=== PATIENT | male | born 1955 | race African-American/Black ===

== ENCOUNTER 2018-05-10 09:03 | Inpatient (IN) | payer BC ==
[2018-05-10] VITALS (17 sets, daily range): BP systolic 110–158; BP diastolic 56–79
[~2018-05-10] VITALS: Ht 188 cm; Wt 95.3 kg
[2018-05-10 09:49] LABS: BASO # 0.1 x10^3/uL (0.0-0.2); BASO % 1 % (0-3); EOS % 0 % (0-3); LYMPH # 1.2 x10^3/uL (1.0-4.8); LYMPH % 13 % (24-48); MEAN CORPUSCULAR HEMOGLOBIN 31 pg (25-35); MEAN CORPUSCULAR HGB CONC 36 g/dL (31-37); MEAN CORPUSCULAR VOLUME 87 fL (79-100); MONO # 1.6 x10^3/uL (0.0-1.1); MONO % 17 % (0-9); NEUT # 6.9 x10^3uL (1.8-7.7); NEUT % 70 % (31-73); PLATELET COUNT 372 x10^3/uL (140-400); RED BLOOD COUNT 1.89 x10^6/uL (4.30-5.70); RED CELL DISTRIBUTION WIDTH 14.3 % (11.5-14.5); WHITE BLOOD COUNT 9.8 x10^3/uL (4.0-11.0)
[2018-05-10 09:52] LABS: HEMOGLOBIN 5.8 g/dL (13.0-17.5)
[2018-05-10 09:53] LABS: HEMATOCRIT 16.4 % (39.0-53.0)
[2018-05-10 09:58] LABS: PROTHROMBIN TIME PATIENT 14.9 SEC (11.7-14.0)
[2018-05-10 09:59] LABS: CALCIUM 8.3 mg/dL (8.5-10.1); CREATININE 1.2 mg/dL (0.7-1.3); GFR 74.2; POTASSIUM 3.9 mmol/L (3.5-5.1)
--- NOTE | 2018-05-10 10:02 | PHYS DOC ---
Past Medical History Past Medical History: Hypertension Past Surgical History: Hip Replacement, Other Additional Past Surgical Histo: back surgery Alcohol Use: Occasionally Drug Use: None Adult General Chief Complaint Chief Complaint: ABNORMAL LABS [facility] HPI Patient is a 62 year old male who presents with anemia. Patient is status post left hip replacement which was completed in March. Since the surgery, the patient has had repeated episodes of anemia. He has required blood transfusions. Today, he was referred to come to the emergency department for documented low blood count. He had labs collected yesterday and his hemoglobin was reportedly 6. Patient has no complaints. No pain. No palpitations, lightheadedness. No fever. He does complain however of some mild soft tissue swelling about the incision on the left lateral thigh. Denies melena or hematochezia. Review of Systems Review of Systems Constitutional: Denies fever or chills Eyes: Denies change in visual acuity, redness HENT: Denies nasal congestion or sore throat Respiratory: Denies cough or shortness of breath Cardiovascular: No additional information not addressed in HPI GI: Denies abdominal pain, nausea : Denies dysuria or hematuria Musculoskeletal: Denies back pain Integument: Denies rash or skin lesions Neurologic: Denies headache Endocrine: Denies polyuria All other systems were reviewed and found to be within normal limits, except as documented in this note. Allergies Allergies Allergies Coded Allergies Type Severity Reaction Last Updated Verified No Known Drug Allergies 05/10/18 No Physical Exam Physical Exam Constitutional: Well developed, well nourished, no acute distress HENT: Normocephalic, atraumatic, bilateral external ears normal, oropharynx moist, no oral exudates Eyes: PERRLA, EOMI, conjunctiva pale Neck: Normal range of motion, no tenderness Cardiovascular:Heart rate regular rhythm, no murmur Lungs & Thorax: Bilateral breath sounds clear to auscultation Abdomen: Bowel sounds normal, soft Skin: Warm, dry, no erythema, Extremities: Well-healing incision over the lateral left thigh. There is some soft tissue firmness about the incision but no overt fluctuant areas. No erythema. No dehiscence or drainage. Neurologic: Alert and oriented X 3, normal motor function, normal sensory function Psychologic: Affect normal, judgement normal, mood normal Current Patient Data Vital Signs Vital Signs Date Time Temp Pulse Resp B/P (MAP) Pulse Ox O2 Delivery O2 Flow Rate FiO2 9/1/18 09:18 99.2 93 12 120/62 (81) 96 Room Air 99.2 Lab Values Laboratory Tests Test 05/10/18 09:36 White Blood Count 9.8 x10^3/uL (4.0-11.0) Red Blood Count 1.89 x10^6/uL (4.30-5.70) L Hemoglobin 5.8 g/dL (13.0-17.5) *L Hematocrit 16.4 % (39.0-53.0) *L Mean Corpuscular Volume 87 fL (79-100) Mean Corpuscular Hemoglobin 31 pg (25-35) Mean Corpuscular Hemoglobin Concent 36 g/dL (31-37) Red Cell Distribution Width 14.3 % (11.5-14.5) Platelet Count 372 x10^3/uL (140-400) Neutrophils (%) (Auto) 70 % (31-73) Lymphocytes (%) (Auto) 13 % (24-48) L Monocytes (%) (Auto) 17 % (0-9) H Eosinophils (%) (Auto) 0 % (0-3) Basophils (%) (Auto) 1 % (0-3) Neutrophils # (Auto) 6.9 x10^3uL (1.8-7.7) Lymphocytes # (Auto) 1.2 x10^3/uL (1.0-4.8) Monocytes # (Auto) 1.6 x10^3/uL (0.0-1.1) H Eosinophils # (Auto) 0.0 x10^3/uL (0.0-0.7) Basophils # (Auto) 0.1 x10^3/uL (0.0-0.2) Prothrombin Time 14.9 SEC (11.7-14.0) H Prothrombin Time INR 1.2 (0.8-1.1) H PTT 34 SEC (24-38) Sodium Level 136 mmol/L (136-145) Potassium Level 3.9 mmol/L (3.5-5.1) Chloride Level 102 mmol/L (98-107) Carbon Dioxide Level 25 mmol/L (21-32) Anion Gap 9 (6-14) Blood Urea Nitrogen 10 mg/dL (8-26) Creatinine 1.2 mg/dL (0.7-1.3) Estimated GFR (Cockcroft-Gault) 74.2 Glucose Level 112 mg/dL (70-99) H Calcium Level 8.3 mg/dL (8.5-10.1) L Total Bilirubin 1.0 mg/dL (0.2-1.0) Direct Bilirubin 0.3 mg/dL (0.0-0.2) H Aspartate Amino Transferase (AST) 22 U/L (15-37) Alanine Aminotransferase (ALT) 27 U/L (16-63) Alkaline Phosphatase 324 U/L (46-116) H Total Protein 6.9 g/dL (6.4-8.2) Albumin 2.9 g/dL (3.4-5.0) L Laboratory Tests 05/10/18 09:36 Laboratory Tests 05/10/18 09:36 EKG EKG [] Radiology/Procedures Radiology/Procedures [] Course & Med Decision Making Course & Med Decision Making Pertinent Labs and Imaging studies reviewed. (See chart for details) Patient was seen and evaluated in the ER for anemia. He was originally referred to the hospital for outpatient blood transfusion which is not an option on the weekend. Subsequently, he will be admitted to the hospital. His hemoglobin is documented above and is low. Patient is relatively asymptomatic. He was noted to have positive guaiac test on his stool, which she had previously not been aware of. GI consultation is placed. Patient is agreeable to the plan of care. Orders are placed for 2 units of packed red blood cells to be transfused. Discussed with Dr. Sibley who will primarily admit the patient. Dragon Disclaimer Dragon Disclaimer This electronic medical record was generated, in whole or in part, using a voice recognition dictation system. Departure Departure Referrals: ERASMO RAMIREZ MD (PCP) MARISOL SY DO May 10, 2018 10:02
[2018-05-10 10:05] LABS: ALBUMIN 2.9 g/dL (3.4-5.0); DIRECT BILIRUBIN 0.3 mg/dL (0.0-0.2); TOTAL PROTEIN 6.9 g/dL (6.4-8.2)
[2018-05-10 10:43] LABS: BILIRUBIN,URINE NEGATIVE (NEG); CLARITY,URINE CLEAR; COLOR,URINE YELLOW; NITRITE,URINE POSITIVE (NEG); PH,URINE 6.5; PROTEIN,URINE NEGATIVE (NEG-TRACE)
[2018-05-10] MEDS ORDERED: ACETAMINOPHEN 500 MG TABLET PO ONE (10:45)
[2018-05-10 11:00] LABS: BACTERIA,URINE MANY /HPF (0-FEW); RBC,URINE OCC /HPF (0-2); SQUAMOUS EPITHELIAL CELL,UR FEW /LPF; WBC,URINE 20-40 /HPF (0-4)
[2018-05-10 11:03] LABS: FECAL OB PT POSITIVE (NEG)
[2018-05-10] MEDS ORDERED: ACETAMINOPHEN 325 MG TABLET. PO PRN (11:15)
[2018-05-10] MEDS ORDERED: ONDANSETRON PF 4 MG/2 ML VIAL. IV PRN ×2 (11:15→12:15)
--- NOTE | 2018-05-10 11:48 | RAD ---
CT STUDY OF THE LEFT HIP AND LEFT FEMUR WITHOUT CONTRAST Clinical indications: Left leg and left hip pain status post left hip replacement in March 2018. Patient has swelling in the thigh. Anemia. TECHNIQUE: Noncontrast helical CT scanning of the left hip and left femur down to the level of the distal femoral metaphysis was performed. Multiplanar 2-D reconstructions were generated. PQRS compliance Statement One or more of the following individualized dose reduction techniques were utilized for this study: 1. Automated exposure control 2. Adjustment of the mA and/or kV according to patient size 3. Use of iterative reconstruction technique COMPARISON: None available. FINDINGS: A left hip arthroplasty is seen which is well aligned. There is metallic streaking artifact related to the arthroplasty. There is a nondisplaced comminuted spiral fracture of the proximal shaft of the left femur. A long femoral stem prosthesis is seen extending through the proximal left femoral shaft and intertrochanteric area down to the distal shaft level below the level of the fracture. Bone infarct is seen within the distal shaft of the left femur distal to the femoral stem prosthesis. 4 cerclage wires are evident. Fracture fragments are seen anteriorly and medially. Some mild callus formation is seen around the upper portion of the fracture. Heterotopic soft tissue ossification is seen. There is a radiolucent lesion of the roof of the acetabulum anteriorly with associated soft tissue component. This lesion measures 4.1 cm transversely and 2.4 cm in AP dimension and 1.9 cm in vertical dimension including the soft tissue component.. There is myositis ossificans laterally within the proximal left thigh which measures 10.8 cm in vertical dimension. There is a fluid collection measuring 8 cm in length just lateral to the greater trochanter. This is consistent with greater trochanteric bursitis or postoperative hematoma or seroma. There is lateral subcutaneous soft tissue edema which may be related to the recent surgery. On images 68-90 and series 2 and images 38-46 and series 4, there is an ill-defined hypodensity present within the biceps femoris muscle. This could be related to the streaking artifact from the prosthesis or could be due to an intramuscular hematoma related to muscle injury. This is seen at the mid thigh level. IMPRESSION: Left hip prosthesis with a long femoral stem. The long femoral stem and cerclage wires fixates and reduces a comminuted left femoral shaft fracture. Mild healing callus formation is evident. The fracture is not yet healed. Fluid collection lateral to the greater trochanter consistent greater trochanteric bursitis or could represent postoperative hematoma or seroma. Infection of this fluid collection or abscess cannot be determined by CT. Ill-defined hypodense area within the biceps Sue muscle the mid thigh area. This could be related to streaking artifact from the metal prosthesis or could represent an intramuscular hematoma secondary to muscle injury. Clinical correlation with this area is recommended. Myositis ossificans laterally. Radiolucent lesion of the roof of the acetabulum. Differential considerations include metastatic disease or myeloma or infection or loosening. Electronically signed by: Fercho Rachel MD (05/10/2018 11:45 AM) [facility]
--- NOTE | 2018-05-10 12:04 | PDOC1 ---
History and Physical Date of Admission Date of Admission DATE: 05/10/18 TIME: 12:04 Identification/Chief Complaint Chief Complaint Black stools Source Source: Caregiver, Chart review, Patient History of Present Illness History of Present Illness Pleasant 62-year-old -[place] male, recent hip surgery left at some 2 months ago. Loots of blood loss yoav/intra op, required multiple blood transfusions at , comes in because of black stools with a hemoglobin of 5.8 on admission. GI consulted, Hemoccult positive. To transfuse 3 packed RBCs. Possible need scope in house during this admission. So far blood pressure and heart rate good. No abdominal pain. CAT scan of the left pelvis hip was done, he has been complaining of some increased pain there. He is healing well on the outside, but there is a mention of postop hematoma or seroma seen on CAT scan. Hence I'm consulting orthopedics. GI Was consulted. Follows with Dr. Lacey Chisholm for the anemia. We'll consult the same group otherwise. Otherwise just takes only Tylenol at home, not on any NSAIDs. No cardio- pulmonary problems. Nonsmoker nonalcoholic drinker No known drug allergies, AMbulates with a cane at home since the hip fx. Past Medical History Cardiovascular: No pertinent hx Pulmonary: Bronchitis GI: No pertinent hx Heme/Onc: No pertinent hx Hepatobiliary: No pertinent hx Musculoskeletal: Osteoarthritis Past Surgical History Past Surgical History: Total hip replacement Family History Family History: No Significant Social History Smoke: No ALCOHOL: none Drugs: None Current Problem List Problem List Problems Medical Problems: (1) Anemia Status: Acute (2) GI bleed Status: Acute (3) Urinary tract infection Status: Acute Current Medications Current Medications Current Medications Acetaminophen (Tylenol) 1,000 mg 1X ONCE PO Last administered on 05/10/18at 10: 38; Start 05/10/18 at 10:45; Stop 05/10/18 at 10:46; Status DC Ondansetron HCl (Zofran) 4 mg PRN Q8HRS PRN IV NAUSEA/VOMITING; Start 05/10/18 at 11:15; Stop 05/11/18 at 11:14 Acetaminophen (Tylenol) 650 mg PRN Q4HRS PRN PO FEVER; Start 05/10/18 at 11:15; Stop 05/11/18 at 11:14 Levofloxacin (Levaquin) 500 mg DAILY06 PO ; Start 05/10/18 at 12:00 Lactobacillus Rhamnosus (Culturelle) 1 cap BID PO ; Start 05/10/18 at 21:00 Allergies Allergies: Coded Allergies: No Known Drug Allergies (Unverified , 05/10/18) ROS Review of System Left hip pain, black stools, the rest of ROS 14 point negative Physical Exam General: Alert, Oriented X3, Cooperative, No acute distress HEENT: Atraumatic, PERRLA, EOMI, Other (pale palpebral conjunctivae) Lungs: Clear to auscultation Heart: S1S2, RRR, no thrills, no rubs, no gallops, no murmurs Cardiovascular: S1, S2 Abdomen: Normal bowel sounds, Soft, No tenderness, No hepatosplenomegaly, No masses Male Genitals Exam: normal genitalia, normal prostate PELVIC: Other (left hip, scar, healing well) Extremities: No clubbing, No cyanosis, No edema Skin: No rashes, No breakdown, No significant lesion Neuro: Normal gait, Normal speech, Strength at 5/5 X4 ext, Normal tone, Sensation intact, Cranial nerves 3-12 NL, Reflexes 2+ Psych/Mental Status: Mental status NL, Mood NL Vitals Vitals Vital Signs Date Time Temp Pulse Resp B/P (MAP) Pulse Ox O2 Delivery O2 Flow Rate FiO2 05/10/18 11:26 98.8 88 20 116/64 98.8 05/10/18 11:18 94 Room Air Labs Labs Laboratory Tests Test 05/10/18 09:36 05/10/18 10:27 05/10/18 10:41 White Blood Count 9.8 x10^3/uL (4.0-11.0) Red Blood Count 1.89 x10^6/uL (4.30-5.70) Hemoglobin 5.8 g/dL (13.0-17.5) Hematocrit 16.4 % (39.0-53.0) Mean Corpuscular Volume 87 fL (79-100) Mean Corpuscular Hemoglobin 31 pg (25-35) Mean Corpuscular Hemoglobin Concent 36 g/dL (31-37) Red Cell Distribution Width 14.3 % (11.5-14.5) Platelet Count 372 x10^3/uL (140-400) Neutrophils (%) (Auto) 70 % (31-73) Lymphocytes (%) (Auto) 13 % (24-48) Monocytes (%) (Auto) 17 % (0-9) Eosinophils (%) (Auto) 0 % (0-3) Basophils (%) (Auto) 1 % (0-3) Neutrophils # (Auto) 6.9 x10^3uL (1.8-7.7) Lymphocytes # (Auto) 1.2 x10^3/uL (1.0-4.8) Monocytes # (Auto) 1.6 x10^3/uL (0.0-1.1) Eosinophils # (Auto) 0.0 x10^3/uL (0.0-0.7) Basophils # (Auto) 0.1 x10^3/uL (0.0-0.2) Prothrombin Time 14.9 SEC (11.7-14.0) Prothromb Time International Ratio 1.2 (0.8-1.1) Activated Partial Thromboplast Time 34 SEC (24-38) Sodium Level 136 mmol/L (136-145) Potassium Level 3.9 mmol/L (3.5-5.1) Chloride Level 102 mmol/L (98-107) Carbon Dioxide Level 25 mmol/L (21-32) Anion Gap 9 (6-14) Blood Urea Nitrogen 10 mg/dL (8-26) Creatinine 1.2 mg/dL (0.7-1.3) Estimated GFR (Cockcroft-Gault) 74.2 Glucose Level 112 mg/dL (70-99) Calcium Level 8.3 mg/dL (8.5-10.1) Total Bilirubin 1.0 mg/dL (0.2-1.0) Direct Bilirubin 0.3 mg/dL (0.0-0.2) Aspartate Amino Transf (AST/SGOT) 22 U/L (15-37) Alanine Aminotransferase (ALT/SGPT) 27 U/L (16-63) Alkaline Phosphatase 324 U/L (46-116) Total Protein 6.9 g/dL (6.4-8.2) Albumin 2.9 g/dL (3.4-5.0) Urine Collection Type Void Urine Color Yellow Urine Clarity Clear Urine pH 6.5 Urine Specific [place] 1.010 Urine Protein Negative mg/dL (NEG-TRACE) Urine Glucose (UA) Negative mg/dL (NEG) Urine Ketones (Stick) Negative mg/dL (NEG) Urine Blood Negative (NEG) Urine Nitrite Positive (NEG) Urine Bilirubin Negative (NEG) Urine Urobilinogen Dipstick 4.0 mg/dL (0.2 mg/dL) Urine Leukocyte Esterase Moderate (NEG) Urine RBC Occ /HPF (0-2) Urine WBC 20-40 /HPF (0-4) Urine Squamous Epithelial Cells Few /LPF Urine Bacteria Many /HPF (0-FEW) Stool Occult Blood Positive (NEG) Laboratory Tests Test 05/10/18 09:36 05/10/18 10:27 05/10/18 10:41 White Blood Count 9.8 x10^3/uL (4.0-11.0) Red Blood Count 1.89 x10^6/uL (4.30-5.70) Hemoglobin 5.8 g/dL (13.0-17.5) Hematocrit 16.4 % (39.0-53.0) Mean Corpuscular Volume 87 fL (79-100) Mean Corpuscular Hemoglobin 31 pg (25-35) Mean Corpuscular Hemoglobin Concent 36 g/dL (31-37) Red Cell Distribution Width 14.3 % (11.5-14.5) Platelet Count 372 x10^3/uL (140-400) Neutrophils (%) (Auto) 70 % (31-73) Lymphocytes (%) (Auto) 13 % (24-48) Monocytes (%) (Auto) 17 % (0-9) Eosinophils (%) (Auto) 0 % (0-3) Basophils (%) (Auto) 1 % (0-3) Neutrophils # (Auto) 6.9 x10^3uL (1.8-7.7) Lymphocytes # (Auto) 1.2 x10^3/uL (1.0-4.8) Monocytes # (Auto) 1.6 x10^3/uL (0.0-1.1) Eosinophils # (Auto) 0.0 x10^3/uL (0.0-0.7) Basophils # (Auto) 0.1 x10^3/uL (0.0-0.2) Prothrombin Time 14.9 SEC (11.7-14.0) Prothromb Time International Ratio 1.2 (0.8-1.1) Activated Partial Thromboplast Time 34 SEC (24-38) Sodium Level 136 mmol/L (136-145) Potassium Level 3.9 mmol/L (3.5-5.1) Chloride Level 102 mmol/L (98-107) Carbon Dioxide Level 25 mmol/L (21-32) Anion Gap 9 (6-14) Blood Urea Nitrogen 10 mg/dL (8-26) Creatinine 1.2 mg/dL (0.7-1.3) Estimated GFR (Cockcroft-Gault) 74.2 Glucose Level 112 mg/dL (70-99) Calcium Level 8.3 mg/dL (8.5-10.1) Total Bilirubin 1.0 mg/dL (0.2-1.0) Direct Bilirubin 0.3 mg/dL (0.0-0.2) Aspartate Amino Transf (AST/SGOT) 22 U/L (15-37) Alanine Aminotransferase (ALT/SGPT) 27 U/L (16-63) Alkaline Phosphatase 324 U/L (46-116) Total Protein 6.9 g/dL (6.4-8.2) Albumin 2.9 g/dL (3.4-5.0) Urine Collection Type Void Urine Color Yellow Urine Clarity Clear Urine pH 6.5 Urine Specific [place] 1.010 Urine Protein Negative mg/dL (NEG-TRACE) Urine Glucose (UA) Negative mg/dL (NEG) Urine Ketones (Stick) Negative mg/dL (NEG) Urine Blood Negative (NEG) Urine Nitrite Positive (NEG) Urine Bilirubin Negative (NEG) Urine Urobilinogen Dipstick 4.0 mg/dL (0.2 mg/dL) Urine Leukocyte Esterase Moderate (NEG) Urine RBC Occ /HPF (0-2) Urine WBC 20-40 /HPF (0-4) Urine Squamous Epithelial Cells Few /LPF Urine Bacteria Many /HPF (0-FEW) Stool Occult Blood Positive (NEG) VTE Prophylaxis Ordered VTE Prophylaxis Devices: Contraindicated VTE Pharmacological Prophylaxi: Contraindicated Assessment/Plan Assessment/Plan Acute precipitous drop in hemoglobin Hemoccult-positive Melena Recent hip surgery 2 months ago Postop seroma or hematoma left hip Abnormal CT leg, rule out metastatic process PLAN: Admit CVC Transfuse 3 pRBC Hemoglobin tomorrow GI consulted PPI ortho consult for the above abnormal CT leg Heme onc consulted for the abnormal CT leg with significant anemia, rule out metastatic process Tylenol only is his home medication PT OT Discussed with the whole family and RN at bedside YULI JAIME MD May 10, 2018 12:04
[2018-05-10] MEDS ORDERED: diphenhydrAMINE HCL 25 MG CAPSULE PO PRN (12:15)
[2018-05-10] MEDS ORDERED: levOFLOXacin PER PHARMACY. MC PRN (12:15)
[2018-05-10] MEDS ORDERED: MORPHINE SULFATE 2 MG/ML VIAL. IV PRN (12:15)
[2018-05-10] MEDS ORDERED: HYDROcodone/APAP 5/325MG 1 TAB TABLET PO PRN (12:15)
--- NOTE | 2018-05-10 12:19 | PDOC2 ---
CONSULT Date of Consult Date of Consult DATE: 05/10/18 TIME: 12:16 Reason for Consult Reason for Consult: Anemia s/p hip replacement Current Problem List Problem List Problems Medical Problems: (1) Anemia Status: Acute (2) GI bleed Status: Acute (3) Urinary tract infection Status: Acute Current Medications Current Medications Current Medications Acetaminophen (Tylenol) 1,000 mg 1X ONCE PO Last administered on 05/10/18at 10: 38; Start 05/10/18 at 10:45; Stop 05/10/18 at 10:46; Status DC Ondansetron HCl (Zofran) 4 mg PRN Q8HRS PRN IV NAUSEA/VOMITING; Start 05/10/18 at 11:15; Stop 05/10/18 at 12:04; Status DC Acetaminophen (Tylenol) 650 mg PRN Q4HRS PRN PO FEVER; Start 05/10/18 at 11:15; Stop 05/11/18 at 11:14 Levofloxacin (Levaquin) 500 mg DAILY06 PO ; Start 05/10/18 at 12:00; Stop at 12:04; Status DC Lactobacillus Rhamnosus (Culturelle) 1 cap BID PO ; Start 05/10/18 at 21:00 Ondansetron HCl (Zofran) 4 mg PRN Q6HRS PRN IV NAUSEA/VOMITING; Start 05/10/18 at 12:15; Status UNV Levofloxacin/ Dextrose (Levaquin Per Pharmacy) 1 each PRN DAILY PRN MC SEE COMMENTS; Start 05/10/18 at 12:15; Status UNV Morphine Sulfate (Morphine Sulfate) 2 mg PRN Q2HR PRN IV PAIN; Start 05/10/18 at 12:15; Status UNV Acetaminophen/ Hydrocodone Bitart (Lortab 5/325) 1 tab PRN Q4HRS PRN PO PAIN; Start 05/10/18 at 12:15; Status UNV Diphenhydramine HCl (Benadryl) 25 mg PRN QHS PRN PO INSOMNIA; Start 05/10/18 at 12:15; Status UNV Allergies Allergies: Coded Allergies: No Known Drug Allergies (Unverified , 05/10/18) Vitals VITALS Vital Signs Date Time Temp Pulse Resp B/P (MAP) Pulse Ox O2 Delivery O2 Flow Rate FiO2 05/10/18 11:26 98.8 88 20 116/64 98.8 05/10/18 11:18 94 Room Air Labs Labs Laboratory Tests Test 05/10/18 09:36 05/10/18 10:27 05/10/18 10:41 White Blood Count 9.8 x10^3/uL (4.0-11.0) Red Blood Count 1.89 x10^6/uL (4.30-5.70) Hemoglobin 5.8 g/dL (13.0-17.5) Hematocrit 16.4 % (39.0-53.0) Mean Corpuscular Volume 87 fL (79-100) Mean Corpuscular Hemoglobin 31 pg (25-35) Mean Corpuscular Hemoglobin Concent 36 g/dL (31-37) Red Cell Distribution Width 14.3 % (11.5-14.5) Platelet Count 372 x10^3/uL (140-400) Neutrophils (%) (Auto) 70 % (31-73) Lymphocytes (%) (Auto) 13 % (24-48) Monocytes (%) (Auto) 17 % (0-9) Eosinophils (%) (Auto) 0 % (0-3) Basophils (%) (Auto) 1 % (0-3) Neutrophils # (Auto) 6.9 x10^3uL (1.8-7.7) Lymphocytes # (Auto) 1.2 x10^3/uL (1.0-4.8) Monocytes # (Auto) 1.6 x10^3/uL (0.0-1.1) Eosinophils # (Auto) 0.0 x10^3/uL (0.0-0.7) Basophils # (Auto) 0.1 x10^3/uL (0.0-0.2) Prothrombin Time 14.9 SEC (11.7-14.0) Prothromb Time International Ratio 1.2 (0.8-1.1) Activated Partial Thromboplast Time 34 SEC (24-38) Sodium Level 136 mmol/L (136-145) Potassium Level 3.9 mmol/L (3.5-5.1) Chloride Level 102 mmol/L (98-107) Carbon Dioxide Level 25 mmol/L (21-32) Anion Gap 9 (6-14) Blood Urea Nitrogen 10 mg/dL (8-26) Creatinine 1.2 mg/dL (0.7-1.3) Estimated GFR (Cockcroft-Gault) 74.2 Glucose Level 112 mg/dL (70-99) Calcium Level 8.3 mg/dL (8.5-10.1) Total Bilirubin 1.0 mg/dL (0.2-1.0) Direct Bilirubin 0.3 mg/dL (0.0-0.2) Aspartate Amino Transf (AST/SGOT) 22 U/L (15-37) Alanine Aminotransferase (ALT/SGPT) 27 U/L (16-63) Alkaline Phosphatase 324 U/L (46-116) Total Protein 6.9 g/dL (6.4-8.2) Albumin 2.9 g/dL (3.4-5.0) Urine Collection Type Void Urine Color Yellow Urine Clarity Clear Urine pH 6.5 Urine Specific [place] 1.010 Urine Protein Negative mg/dL (NEG-TRACE) Urine Glucose (UA) Negative mg/dL (NEG) Urine Ketones (Stick) Negative mg/dL (NEG) Urine Blood Negative (NEG) Urine Nitrite Positive (NEG) Urine Bilirubin Negative (NEG) Urine Urobilinogen Dipstick 4.0 mg/dL (0.2 mg/dL) Urine Leukocyte Esterase Moderate (NEG) Urine RBC Occ /HPF (0-2) Urine WBC 20-40 /HPF (0-4) Urine Squamous Epithelial Cells Few /LPF Urine Bacteria Many /HPF (0-FEW) Stool Occult Blood Positive (NEG) Laboratory Tests Test 05/10/18 09:36 05/10/18 10:27 05/10/18 10:41 White Blood Count 9.8 x10^3/uL (4.0-11.0) Red Blood Count 1.89 x10^6/uL (4.30-5.70) Hemoglobin 5.8 g/dL (13.0-17.5) Hematocrit 16.4 % (39.0-53.0) Mean Corpuscular Volume 87 fL (79-100) Mean Corpuscular Hemoglobin 31 pg (25-35) Mean Corpuscular Hemoglobin Concent 36 g/dL (31-37) Red Cell Distribution Width 14.3 % (11.5-14.5) Platelet Count 372 x10^3/uL (140-400) Neutrophils (%) (Auto) 70 % (31-73) Lymphocytes (%) (Auto) 13 % (24-48) Monocytes (%) (Auto) 17 % (0-9) Eosinophils (%) (Auto) 0 % (0-3) Basophils (%) (Auto) 1 % (0-3) Neutrophils # (Auto) 6.9 x10^3uL (1.8-7.7) Lymphocytes # (Auto) 1.2 x10^3/uL (1.0-4.8) Monocytes # (Auto) 1.6 x10^3/uL (0.0-1.1) Eosinophils # (Auto) 0.0 x10^3/uL (0.0-0.7) Basophils # (Auto) 0.1 x10^3/uL (0.0-0.2) Prothrombin Time 14.9 SEC (11.7-14.0) Prothromb Time International Ratio 1.2 (0.8-1.1) Activated Partial Thromboplast Time 34 SEC (24-38) Sodium Level 136 mmol/L (136-145) Potassium Level 3.9 mmol/L (3.5-5.1) Chloride Level 102 mmol/L (98-107) Carbon Dioxide Level 25 mmol/L (21-32) Anion Gap 9 (6-14) Blood Urea Nitrogen 10 mg/dL (8-26) Creatinine 1.2 mg/dL (0.7-1.3) Estimated GFR (Cockcroft-Gault) 74.2 Glucose Level 112 mg/dL (70-99) Calcium Level 8.3 mg/dL (8.5-10.1) Total Bilirubin 1.0 mg/dL (0.2-1.0) Direct Bilirubin 0.3 mg/dL (0.0-0.2) Aspartate Amino Transf (AST/SGOT) 22 U/L (15-37) Alanine Aminotransferase (ALT/SGPT) 27 U/L (16-63) Alkaline Phosphatase 324 U/L (46-116) Total Protein 6.9 g/dL (6.4-8.2) Albumin 2.9 g/dL (3.4-5.0) Urine Collection Type Void Urine Color Yellow Urine Clarity Clear Urine pH 6.5 Urine Specific [place] 1.010 Urine Protein Negative mg/dL (NEG-TRACE) Urine Glucose (UA) Negative mg/dL (NEG) Urine Ketones (Stick) Negative mg/dL (NEG) Urine Blood Negative (NEG) Urine Nitrite Positive (NEG) Urine Bilirubin Negative (NEG) Urine Urobilinogen Dipstick 4.0 mg/dL (0.2 mg/dL) Urine Leukocyte Esterase Moderate (NEG) Urine RBC Occ /HPF (0-2) Urine WBC 20-40 /HPF (0-4) Urine Squamous Epithelial Cells Few /LPF Urine Bacteria Many /HPF (0-FEW) Stool Occult Blood Positive (NEG) Assessment/Plan Assessment/Plan Anemia- etiology to be determined. Gastric/colon cancer, AVMS, celaic disease, and/or IBD with weight loss in differential as well as marrow dysfunction Plan transfuse 3 units PRBC advance diet await b12/retic/iron/foalte stores heme consult pending above. Possible Bm biopsy and/or endoscopy to further assess Full note dictated KRYSTEN ORDOÑEZ MD May 10, 2018 12:19
[2018-05-10] MEDS ORDERED: PANTOPRAZOLE 40 MG TABLET.DR. PO ONE (12:45)
--- NOTE | 2018-05-10 12:56 | PDOC ---
Provider Note Provider Note Consult noted, labs, chart and CT reviewed. Left hip surgery in March at . CT shows long stem [place] and femur fracture stabilized with cerclage wires. lateral hematoma on CT series 4 image 39. Significant anemia hgb 5.8, with transfusions planned. Will check CRP and ESR. Doubtful infection or need for ortho surgery but will discuss with him tomorrow with lab results. MARISOL ALDANA MD May 10, 2018 12:56
[2018-05-10 19:10] LABS: HEMATOCRIT 21.6 % (39.0-53.0); HEMOGLOBIN 7.7 g/dL (13.0-17.5); RED BLOOD COUNT 2.49 x10^6/uL (4.30-5.70); RED CELL DISTRIBUTION WIDTH 14.5 % (11.5-14.5); WHITE BLOOD COUNT 9.6 x10^3/uL (4.0-11.0)
[2018-05-10] MEDS: LACTOBACILLUS RHAMNOSUS GG 1 CAPSULE. PO SCH (21:24)
[2018-05-11 00:30] VITALS: BP 144/87
--- NOTE | 2018-05-11 02:48 | CONS ---
DATE OF CONSULTATION: 05/10/2018 REASON FOR CONSULTATION: Anemia, status post hip replacement. HISTORY OF PRESENT ILLNESS: A 62-year-old -[place] male with past medical history significant for hypertension, osteoarthrosis, status post hip repair with prior replacement, had persistent anemia and has required transfusions. Denies any melena and/or hematochezia. Not undergone upper endoscopy and colonoscopy, has lost approximately 50 pounds; however, in the past year. Denies family history of colon polyps or colon cancer, dysphagia, odynophagia, significant heartburn and feels dyspneic with exertion with low counts and is here for transfusion support and potential further workup. PAST MEDICAL HISTORY: History of hypertension, anemia, status post hip replacement and osteoarthrosis. ALLERGIES: None. MEDICATIONS: Presently include Benadryl, hydrocodone and levofloxacin. FAMILY AND SOCIAL HISTORY: Does not drink or smoke in excess. Family history is noncontributory. REVIEW OF SYSTEMS: As per records. PHYSICAL EXAMINATION: GENERAL: Reveals a well-nourished, well-developed male. VITAL SIGNS: Temperature is 98.8, pulse 88, respiratory rate 20 and blood pressure 118/64. HEENT: Reveals normocephalic and atraumatic head. Pupils and extraocular muscles are not tested. Sclerae anicteric. NECK: Supple. LUNGS: Clear. CARDIOVASCULAR: Reveals an S1 and S2 without S3, S4 or appreciable murmur. ABDOMEN: Reveals soft abdomen, normal bowel sounds without appreciable hepatosplenomegaly. EXTREMITIES: Reveals no cyanosis, clubbing or edema. LABORATORY STUDIES: Sodium 136, potassium 3.9, chloride 102, BUN 10, creatinine 1.2, glucose 112, calcium 8.3, total bilirubin 1.0, direct bilirubin 0.3, AST 22, ALT of 27, alkaline phosphatase 324, total protein 6.9, albumin 2.9. Hemoglobin 5.8 and hematocrit 16.4, white count 9.8 and platelet count 372,000. Iron stores, B12, retic and folate levels presently are pending. IMPRESSION: Anemia, status post hip replacement and weight loss etiology is to be determined, gastric or colon malignancy, myeloma, bone marrow dysfunction, AVMs, celiac disease and IBD are in the differential; therefore, I recommend awaiting the heme parameters, transfusional support, advance his diet, heme consult and either bone marrow workup and/or possible endoscopy to further assess the symptoms either as an inpatient or outpatient pending the patient's clinical course. KRYSTEN ORDOÑEZ MD DR: ASTRID/ollie JOB#: [id number] / [id number] Dr. Tj Hudson Dr.
[2018-05-11 03:50] VITALS: BP 128/75
[2018-05-11 04:01] LABS: BASO % 0 % (0-3); EOS # 0.1 x10^3/uL (0.0-0.7); EOS % 2 % (0-3); HEMATOCRIT 23.5 % (39.0-53.0); HEMOGLOBIN 8.5 g/dL (13.0-17.5); LYMPH # 2.1 x10^3/uL (1.0-4.8); LYMPH % 24 % (24-48); MEAN CORPUSCULAR HEMOGLOBIN 31 pg (25-35); MEAN CORPUSCULAR HGB CONC 36 g/dL (31-37); MEAN CORPUSCULAR VOLUME 86 fL (79-100); MONO # 1.3 x10^3/uL (0.0-1.1); MONO % 16 % (0-9); NEUT # 5.1 x10^3uL (1.8-7.7); NEUT % 59 % (31-73); PLATELET COUNT 323 x10^3/uL (140-400); RED BLOOD COUNT 2.73 x10^6/uL (4.30-5.70); RED CELL DISTRIBUTION WIDTH 14.7 % (11.5-14.5); WHITE BLOOD COUNT 8.6 x10^3/uL (4.0-11.0)
[2018-05-11 04:33] LABS: ALBUMIN 2.6 g/dL (3.4-5.0); ALBUMIN/GLOBULIN RATIO 0.7 (1.0-1.7); CALCIUM 8.1 mg/dL (8.5-10.1); CREATININE 1.1 mg/dL (0.7-1.3); GFR 82.1; POTASSIUM 4.1 mmol/L (3.5-5.1); TOTAL BILIRUBIN 0.7 mg/dL (0.2-1.0); TOTAL PROTEIN 6.4 g/dL (6.4-8.2)
--- NOTE | 2018-05-11 07:13 | PDOC2 ---
CONSULT Date of Consult Date of Consult DATE: 05/11/18 TIME: 06:36 Reason for Consult Reason for Consult: abnormal CT of leg Identification/Chief Complaint Chief Complaint post-op problems from L hip revision Source Source: Patient History of Present Illness Reason for Visit: Mr. Brain oRa was having progressively worsening left hip pain for the past year. He previously underwent a left total hip arthroplasty with metal on metal joint on 09/20/[address] Alberto Tran at [facility]. Imaging c/ w pseudotumor, pre-op labs showed high cobalt/chromium, and he was noted to have anemia with Hgb 10.6 (iron sat 29%, ferritin/ESR/CRP elevated), but no protein gap, hypercalcemia, or renal failure on pre-op labs. Dr Sorto took him for L hip revision 03/18/18 - path c/w fibrosis, synovial proliferation, black granular pigment and chronic inflammation; less than five neutrophils per high-power field. Cultures were negative. Estimated blood loss during the procedure was ~1L. He has had continued problems with bleeding with resolving hematoma since the surgery, requiring PRBC transfusions at couple different times since. He came in to outpt Heme/Onc clinic 05/09/18 with Hgb again ~6g/dL yesterday, and was seen by my partner Dr Chisholm. She has already sent off labs for myeloma on Sat. Retic count was inappropriately low. He was having some mild shortness of breath and fatigue; aspirin has been stopped 1 week ago, He has had extremely dark black stools for weeks now, and his has really been getting on him for that. Finally took a couple days worth of iron pills recently. Takes acid reflux medicines at least a couple times a month. Never had an EGD, but has had c-scope for colon cancer screening. Stool occult positive in ER yesterday. Past Medical History Cardiovascular: HTN Pulmonary: Bronchitis GI: No pertinent hx Heme/Onc: No pertinent hx Hepatobiliary: No pertinent hx Musculoskeletal: Osteoarthritis Renal/: No pertinent hx Endocrine: No pertinent hx Dermatology: No pertinent hx Past Surgical History Past Surgical History: Total hip replacement (with revision March 2018) Family History Family History: No Significant Social History No ALCOHOL: none Drugs: None Current Problem List Problem List Problems Medical Problems: (1) Anemia Status: Acute (2) GI bleed Status: Acute (3) Urinary tract infection Status: Acute Current Medications Current Medications Current Medications Acetaminophen (Tylenol) 1,000 mg 1X ONCE PO Last administered on 05/10/18at 10: 38; Start 05/10/18 at 10:45; Stop 05/10/18 at 10:46; Status DC Ondansetron HCl (Zofran) 4 mg PRN Q8HRS PRN IV NAUSEA/VOMITING; Start 05/10/18 at 11:15; Stop 05/10/18 at 12:04; Status DC Acetaminophen (Tylenol) 650 mg PRN Q4HRS PRN PO FEVER Last administered on at 21:27; Start 05/10/18 at 11:15; Stop 05/11/18 at 11:14 Levofloxacin (Levaquin) 500 mg DAILY06 PO ; Start 05/10/18 at 12:00; Stop at 12:04; Status DC Lactobacillus Rhamnosus (Culturelle) 1 cap BID PO Last administered on at 21:24; Start 05/10/18 at 21:00 Ondansetron HCl (Zofran) 4 mg PRN Q6HRS PRN IV NAUSEA/VOMITING 1ST CHOICE; Start 05/10/18 at 12:15 Levofloxacin/ Dextrose (Levaquin Per Pharmacy) 1 each PRN DAILY PRN MC SEE COMMENTS; Start 05/10/18 at 12:15 Morphine Sulfate (Morphine Sulfate) 2 mg PRN Q2HR PRN IV PAIN SEVERE; Start 05/10/18 at 12:15 Acetaminophen/ Hydrocodone Bitart (Lortab 5/325) 1 tab PRN Q4HRS PRN PO PAIN; Start 05/10/18 at 12:15 Diphenhydramine HCl (Benadryl) 25 mg PRN QHS PRN PO INSOMNIA; Start 05/10/18 at 12:15 Levofloxacin (Levaquin) 250 mg DAILY06 PO Last administered on 05/11/18at 06:20; Start 05/10/18 at 13:00 Pantoprazole Sodium (Protonix) 40 mg DAILYAC PO ; Start 05/11/18 at 07:30 Pantoprazole Sodium (Protonix) 40 mg 1X ONCE PO Last administered on 05/10/18at 13:17; Start 05/10/18 at 12:45; Stop 05/10/18 at 12:46; Status DC Allergies Allergies: Coded Allergies: No Known Drug Allergies (Unverified , 05/10/18) ROS General: YES: Fatigue PSYCHOLOGICAL ROS: No: Anxiety, Behavioral Disorder, Concentration difficultie , Decreased libido, Depression, Disorientation, Hallucinations, Hostility, Irritablity, Memory difficulties, Mood Swings, Obsessive thoughts, Physical abuse, Sexual abuse, Sleep disturbances, Suicidal ideation, Other Eyes: No Blurry vision, No Decreased vision, No Double vision, No Dry eyes, No Excessive tearing, No Eye Pain, No Itchy Eyes, No Loss of vision, No Photophobia , No Scotomata, No Uses contacts, No Uses glasses, No Other HEENT: No: Heacaches, Visual Changes, Hearing change, Nasal congestion, Nasal discharge, Oral lesions, Sinus pain, Sore Throat, Epistaxis, Sneezing, Snoring, Tinnitus, Vertigo, Vocal changes, Other Hematological and Lymphatic: YES: Bleeding Problems, Blood Transfusions, Brusing ENDOCRINE: No: Breast Changes, Galactorrhea, Hair Pattern Changes, Hot Flashes , Malaise/lethargy, Mood Swings, Palpitations, Polydipsia/polyuria, Skin Changes , Temperature Intolerance, Unexpected Weight Changes, Other Respiratory: YES: SOB with excertion Cardiovascular: No Chest Pain, No Palpitations, No Orthopnea, No Paroxysmal Noc. Dyspnea, No Edema, No Lt Headedness, No Other Gastrointestinal: No Nausea, No Vomiting, No Abdominal Pain, No Diarrhea, No Constipation, No Melena, No Hematochezia, No Other Genitourinary: No Dysuria, No Frequency, No Incontinence, No Hematuria, No Retention, No Discharge, No Urgency, No Pain, No Flank Pain, No Other, No , No , No , No , No , No , No Musculoskeletal: Yes Joint Pain Neurological: No Behavorial Changes, No Bowel/Bladder ControlChng, No Confusion , No Dizziness, No Gait Disturbance, No Headaches, No Impaired Coord/balance, No Memory Loss, No Numbness/Tingling, No Seizures, No Speech Problems, No Tremors, No Visual Changes, No Weakness, No Other Physical Exam General: Alert, Oriented X3, Cooperative, No acute distress HEENT: Atraumatic, EOMI Lungs: Clear to auscultation, Normal air movement Heart: Regular rate, No murmurs Abdomen: Normal bowel sounds, No tenderness Extremities: No clubbing, No cyanosis, No edema Skin: No rashes, No significant lesion Neuro: Normal gait, Normal speech, Strength at 5/5 X4 ext, Normal tone Psych/Mental Status: Mental status NL MUSCULOSKELETAL: Abnormal exam of left (hip - minimal swelling, good movement, ) Vitals VITALS Vital Signs Date Time Temp Pulse Resp B/P (MAP) Pulse Ox O2 Delivery O2 Flow Rate FiO2 05/11/18 03:50 98.7 80 18 128/75 (92) 96 Room Air 98.7 Labs Labs Laboratory Tests Test 05/10/18 09:36 05/10/18 10:27 05/10/18 10:41 05/10/18 18:45 White Blood Count 9.8 x10^3/uL (4.0-11.0) 9.6 x10^3/uL (4.0-11.0) Red Blood Count 1.89 x10^6/uL (4.30-5.70) 2.49 x10^6/uL (4.30-5.70) Hemoglobin 5.8 g/dL (13.0-17.5) 7.7 g/dL (13.0-17.5) Hematocrit 16.4 % (39.0-53.0) 21.6 % (39.0-53.0) Mean Corpuscular Volume 87 fL (79-100) 87 fL (79-100) Mean Corpuscular Hemoglobin 31 pg (25-35) 31 pg (25-35) Mean Corpuscular Hemoglobin Concent 36 g/dL (31-37) 36 g/dL (31-37) Red Cell Distribution Width 14.3 % (11.5-14.5) 14.5 % (11.5-14.5) Platelet Count 372 x10^3/uL (140-400) 360 x10^3/uL (140-400) Neutrophils (%) (Auto) 70 % (31-73) Lymphocytes (%) (Auto) 13 % (24-48) Monocytes (%) (Auto) 17 % (0-9) Eosinophils (%) (Auto) 0 % (0-3) Basophils (%) (Auto) 1 % (0-3) Neutrophils # (Auto) 6.9 x10^3uL (1.8-7.7) Lymphocytes # (Auto) 1.2 x10^3/uL (1.0-4.8) Monocytes # (Auto) 1.6 x10^3/uL (0.0-1.1) Eosinophils # (Auto) 0.0 x10^3/uL (0.0-0.7) Basophils # (Auto) 0.1 x10^3/uL (0.0-0.2) Prothrombin Time 14.9 SEC (11.7-14.0) Prothromb Time International Ratio 1.2 (0.8-1.1) Activated Partial Thromboplast Time 34 SEC (24-38) Sodium Level 136 mmol/L (136-145) Potassium Level 3.9 mmol/L (3.5-5.1) Chloride Level 102 mmol/L (98-107) Carbon Dioxide Level 25 mmol/L (21-32) Anion Gap 9 (6-14) Blood Urea Nitrogen 10 mg/dL (8-26) Creatinine 1.2 mg/dL (0.7-1.3) Estimated GFR (Cockcroft-Gault) 74.2 Glucose Level 112 mg/dL (70-99) Calcium Level 8.3 mg/dL (8.5-10.1) Iron Level 53 ug/dL (65-175) Total Iron Binding Capacity 137 ug/dL (250-450) Iron Saturation 39 % (15-34) Total Bilirubin 1.0 mg/dL (0.2-1.0) Direct Bilirubin 0.3 mg/dL (0.0-0.2) Aspartate Amino Transf (AST/SGOT) 22 U/L (15-37) Alanine Aminotransferase (ALT/SGPT) 27 U/L (16-63) Alkaline Phosphatase 324 U/L (46-116) Total Protein 6.9 g/dL (6.4-8.2) Albumin 2.9 g/dL (3.4-5.0) Urine Collection Type Void Urine Color Yellow Urine Clarity Clear Urine pH 6.5 Urine Specific [place] 1.010 Urine Protein Negative mg/dL (NEG-TRACE) Urine Glucose (UA) Negative mg/dL (NEG) Urine Ketones (Stick) Negative mg/dL (NEG) Urine Blood Negative (NEG) Urine Nitrite Positive (NEG) Urine Bilirubin Negative (NEG) Urine Urobilinogen Dipstick 4.0 mg/dL (0.2 mg/dL) Urine Leukocyte Esterase Moderate (NEG) Urine RBC Occ /HPF (0-2) Urine WBC 20-40 /HPF (0-4) Urine Squamous Epithelial Cells Few /LPF Urine Bacteria Many /HPF (0-FEW) Stool Occult Blood Positive (NEG) Test 05/11/18 03:00 White Blood Count 8.6 x10^3/uL (4.0-11.0) Red Blood Count 2.73 x10^6/uL (4.30-5.70) Hemoglobin 8.5 g/dL (13.0-17.5) Hematocrit 23.5 % (39.0-53.0) Mean Corpuscular Volume 86 fL (79-100) Mean Corpuscular Hemoglobin 31 pg (25-35) Mean Corpuscular Hemoglobin Concent 36 g/dL (31-37) Red Cell Distribution Width 14.7 % (11.5-14.5) Platelet Count 323 x10^3/uL (140-400) Neutrophils (%) (Auto) 59 % (31-73) Lymphocytes (%) (Auto) 24 % (24-48) Monocytes (%) (Auto) 16 % (0-9) Eosinophils (%) (Auto) 2 % (0-3) Basophils (%) (Auto) 0 % (0-3) Neutrophils # (Auto) 5.1 x10^3uL (1.8-7.7) Lymphocytes # (Auto) 2.1 x10^3/uL (1.0-4.8) Monocytes # (Auto) 1.3 x10^3/uL (0.0-1.1) Eosinophils # (Auto) 0.1 x10^3/uL (0.0-0.7) Basophils # (Auto) 0.0 x10^3/uL (0.0-0.2) Erythrocyte Sedimentation Rate 55 (0-15) Reticulocyte Count (auto) 0.4 % (0.5-2.5) Sodium Level 138 mmol/L (136-145) Potassium Level 4.1 mmol/L (3.5-5.1) Chloride Level 106 mmol/L (98-107) Carbon Dioxide Level 24 mmol/L (21-32) Anion Gap 8 (6-14) Blood Urea Nitrogen 12 mg/dL (8-26) Creatinine 1.1 mg/dL (0.7-1.3) Estimated GFR (Cockcroft-Gault) 82.1 BUN/Creatinine Ratio 11 (6-20) Glucose Level 106 mg/dL (70-99) Calcium Level 8.1 mg/dL (8.5-10.1) Total Bilirubin 0.7 mg/dL (0.2-1.0) Aspartate Amino Transf (AST/SGOT) 22 U/L (15-37) Alanine Aminotransferase (ALT/SGPT) 26 U/L (16-63) Alkaline Phosphatase 295 U/L (46-116) C-Reactive Protein, Quantitative 104.2 mg/L (0-3.3) Total Protein 6.4 g/dL (6.4-8.2) Albumin 2.6 g/dL (3.4-5.0) Albumin/Globulin Ratio 0.7 (1.0-1.7) Laboratory Tests Test 05/10/18 09:36 05/10/18 10:27 05/10/18 10:41 05/10/18 18:45 White Blood Count 9.8 x10^3/uL (4.0-11.0) 9.6 x10^3/uL (4.0-11.0) Red Blood Count 1.89 x10^6/uL (4.30-5.70) 2.49 x10^6/uL (4.30-5.70) Hemoglobin 5.8 g/dL (13.0-17.5) 7.7 g/dL (13.0-17.5) Hematocrit 16.4 % (39.0-53.0) 21.6 % (39.0-53.0) Mean Corpuscular Volume 87 fL (79-100) 87 fL (79-100) Mean Corpuscular Hemoglobin 31 pg (25-35) 31 pg (25-35) Mean Corpuscular Hemoglobin Concent 36 g/dL (31-37) 36 g/dL (31-37) Red Cell Distribution Width 14.3 % (11.5-14.5) 14.5 % (11.5-14.5) Platelet Count 372 x10^3/uL (140-400) 360 x10^3/uL (140-400) Neutrophils (%) (Auto) 70 % (31-73) Lymphocytes (%) (Auto) 13 % (24-48) Monocytes (%) (Auto) 17 % (0-9) Eosinophils (%) (Auto) 0 % (0-3) Basophils (%) (Auto) 1 % (0-3) Neutrophils # (Auto) 6.9 x10^3uL (1.8-7.7) Lymphocytes # (Auto) 1.2 x10^3/uL (1.0-4.8) Monocytes # (Auto) 1.6 x10^3/uL (0.0-1.1) Eosinophils # (Auto) 0.0 x10^3/uL (0.0-0.7) Basophils # (Auto) 0.1 x10^3/uL (0.0-0.2) Prothrombin Time 14.9 SEC (11.7-14.0) Prothromb Time International Ratio 1.2 (0.8-1.1) Activated Partial Thromboplast Time 34 SEC (24-38) Sodium Level 136 mmol/L (136-145) Potassium Level 3.9 mmol/L (3.5-5.1) Chloride Level 102 mmol/L (98-107) Carbon Dioxide Level 25 mmol/L (21-32) Anion Gap 9 (6-14) Blood Urea Nitrogen 10 mg/dL (8-26) Creatinine 1.2 mg/dL (0.7-1.3) Estimated GFR (Cockcroft-Gault) 74.2 Glucose Level 112 mg/dL (70-99) Calcium Level 8.3 mg/dL (8.5-10.1) Iron Level 53 ug/dL (65-175) Total Iron Binding Capacity 137 ug/dL (250-450) Iron Saturation 39 % (15-34) Total Bilirubin 1.0 mg/dL (0.2-1.0) Direct Bilirubin 0.3 mg/dL (0.0-0.2) Aspartate Amino Transf (AST/SGOT) 22 U/L (15-37) Alanine Aminotransferase (ALT/SGPT) 27 U/L (16-63) Alkaline Phosphatase 324 U/L (46-116) Total Protein 6.9 g/dL (6.4-8.2) Albumin 2.9 g/dL (3.4-5.0) Urine Collection Type Void Urine Color Yellow Urine Clarity Clear Urine pH 6.5 Urine Specific [place] 1.010 Urine Protein Negative mg/dL (NEG-TRACE) Urine Glucose (UA) Negative mg/dL (NEG) Urine Ketones (Stick) Negative mg/dL (NEG) Urine Blood Negative (NEG) Urine Nitrite Positive (NEG) Urine Bilirubin Negative (NEG) Urine Urobilinogen Dipstick 4.0 mg/dL (0.2 mg/dL) Urine Leukocyte Esterase Moderate (NEG) Urine RBC Occ /HPF (0-2) Urine WBC 20-40 /HPF (0-4) Urine Squamous Epithelial Cells Few /LPF Urine Bacteria Many /HPF (0-FEW) Stool Occult Blood Positive (NEG) Test 05/11/18 03:00 White Blood Count 8.6 x10^3/uL (4.0-11.0) Red Blood Count 2.73 x10^6/uL (4.30-5.70) Hemoglobin 8.5 g/dL (13.0-17.5) Hematocrit 23.5 % (39.0-53.0) Mean Corpuscular Volume 86 fL (79-100) Mean Corpuscular Hemoglobin 31 pg (25-35) Mean Corpuscular Hemoglobin Concent 36 g/dL (31-37) Red Cell Distribution Width 14.7 % (11.5-14.5) Platelet Count 323 x10^3/uL (140-400) Neutrophils (%) (Auto) 59 % (31-73) Lymphocytes (%) (Auto) 24 % (24-48) Monocytes (%) (Auto) 16 % (0-9) Eosinophils (%) (Auto) 2 % (0-3) Basophils (%) (Auto) 0 % (0-3) Neutrophils # (Auto) 5.1 x10^3uL (1.8-7.7) Lymphocytes # (Auto) 2.1 x10^3/uL (1.0-4.8) Monocytes # (Auto) 1.3 x10^3/uL (0.0-1.1) Eosinophils # (Auto) 0.1 x10^3/uL (0.0-0.7) Basophils # (Auto) 0.0 x10^3/uL (0.0-0.2) Erythrocyte Sedimentation Rate 55 (0-15) Reticulocyte Count (auto) 0.4 % (0.5-2.5) Sodium Level 138 mmol/L (136-145) Potassium Level 4.1 mmol/L (3.5-5.1) Chloride Level 106 mmol/L (98-107) Carbon Dioxide Level 24 mmol/L (21-32) Anion Gap 8 (6-14) Blood Urea Nitrogen 12 mg/dL (8-26) Creatinine 1.1 mg/dL (0.7-1.3) Estimated GFR (Cockcroft-Gault) 82.1 BUN/Creatinine Ratio 11 (6-20) Glucose Level 106 mg/dL (70-99) Calcium Level 8.1 mg/dL (8.5-10.1) Total Bilirubin 0.7 mg/dL (0.2-1.0) Aspartate Amino Transf (AST/SGOT) 22 U/L (15-37) Alanine Aminotransferase (ALT/SGPT) 26 U/L (16-63) Alkaline Phosphatase 295 U/L (46-116) C-Reactive Protein, Quantitative 104.2 mg/L (0-3.3) Total Protein 6.4 g/dL (6.4-8.2) Albumin 2.6 g/dL (3.4-5.0) Albumin/Globulin Ratio 0.7 (1.0-1.7) Images Images MRI L hip February 2018 pre-op: Magnetic stability artifacts are identified involving the left hip consistent with the patient's left hip arthroplasty. A large complex fluid collection is identified surrounding the hip arthroplasty extending posteriorly and laterally. A component of the fluid collection extends anteriorly just deep to the tensor fascia georgi. This demonstrates decreased signal intensity on STIR images. The gluteus minimus tendon is intact. Demonstrates abnormal signal adjacent to insertion on the greater trochanter the proximal left. [place] to represent advanced tendinopathy. There is no evidence of complete disruption of this tendon. The hamstring tendons are intact. The origin of the adductor muscles appears unremarkable. Coronal STIR survey images of the pelvis demonstrate loss of articular cartilage involving right hip. Subarticular cysts are present involving the right hip. A right hip joint effusion is present. A tear of the lateral aspect of the labrum of the hip is demonstrated on the coronal images. CT L hip 04/18/18 post-op at [facility]: Postsurgical changes of a left total hip arthroplasty is identified with multiple cerclage wires along the proximal femur metadiaphysis with a subacute likely oriented fracture of the proximal femoral metadiaphysis which demonstrates early callus formation, compatible with interval healing. Hardware remains intact. A predominantly low-density fluid collection extends from the left gluteus musculature muscles along the posterior and posterior lateral proximal femur to the level of the distal femoral stem, the overall dimensions of the fluid collection measures 26 cm craniocaudal and 9.1 transverse x 3.6 cm AP. No layering or high density components are identified. No additional discrete intramuscular collections are identified. Multiple foci of myositis ossificans are noted within the peripheral aspect of the vastus lateralis, deep to the tensor fascia georgi. Subcutaneous edema and surgical excision is again identified extending from the posterior soft tissues to the soft tissues of the anterolateral left thigh. Hip/pelvis x-rays 05/02/18: Redemonstration of elevation of left total hip arthroplasty with multiple cerclage wires about the proximal femur, components intact. Unchanged alignment of comminuted proximal left femoral fracture with further maturation of bony callus formation consistent with partial progressive incomplete healing. Slightly increased heterotopic ossification inferior medial to the left femoral neck. Unchanged moderate right hip arthrosis. No acute osseous abnormality. Bilateral SI and pubic symphysis joint spaces are maintained with normal alignment. Unchanged appearance of lower lumbar degenerative disease with disc spacers at L4-5 and L5-S1. CT STUDY OF THE LEFT HIP AND LEFT FEMUR WITHOUT CONTRAST 05/10/18 done here COMPARISON: None available. FINDINGS: A left hip arthroplasty is seen which is well aligned. There is metallic streaking artifact related to the arthroplasty. There is a nondisplaced comminuted spiral fracture of the proximal shaft of the left femur. A long femoral stem prosthesis is seen extending through the proximal left femoral shaft and intertrochanteric area down to the distal shaft level below the level of the fracture. Bone infarct is seen within the distal shaft of the left femur distal to the femoral stem prosthesis. 4 cerclage wires are evident. Fracture fragments are seen anteriorly and medially. Some mild callus formation is seen around the upper portion of the fracture. Heterotopic soft tissue ossification is seen. There is a radiolucent lesion of the roof of the acetabulum anteriorly with associated soft tissue component. Differential considerations include metastatic disease or myeloma or infection or loosening. This lesion measures 4.1 cm transversely and 2.4 cm in AP dimension and 1.9 cm in vertical dimension including the soft tissue component.. There is myositis ossificans laterally within the proximal left thigh which measures 10.8 cm in vertical dimension. There is a fluid collection measuring 8 cm in length just lateral to the greater trochanter. This is consistent with greater trochanteric bursitis or postoperative hematoma or seroma. There is lateral subcutaneous soft tissue edema which may be related to the recent surgery. There is an ill-defined hypodensity present within the biceps femoris muscle. This could be related to the streaking artifact from the prosthesis or could be due to an intramuscular hematoma related to muscle injury. This is seen at the mid thigh level. Assessment/Plan Assessment/Plan 62-year-old male with acute on chronic anemia s/p L hip revision March 2018 with resolving hematoma L hip. Rec'd 3 U PRBCs 05/10/18 with appropriate response from mid5g/dL to mid8g/dL. Vitals are stable and he ate well last night. With regards to the abnormality on the CT of his leg, with the revision that he had done in March, I am not as worried about this area. This is unlikely myeloma, as there is no problems with calcium, renal failure or proteinuria. An SPEP was sent on Saturday though. He will be following with Dr Sorto routinely. For anemia, no history of bleeding problems. He has had multiple PRBC transfusions of late. The fact that his ESR/CRP/plts were elevated both pre-op and now suggest ferritin is likely elevated as an acute phase reactant too. 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 I think it could be a component of a couple things going on - 1.) blood loss - repeat operation is not out of the question if he continues to bleed there; he had some underlying anemia pre-op, most likely chronic disease, but with stool occult positivity, should be worked up by GI (which could be done as outpt as he is clinically stable) 2.) bone marrow is not responding like we want, and a bone marrow could be considered as well (again, could be done as outpt). He already has follow-up planned with Dr Chisholm for Saturday. The fact that he is stable after the PRBC transfusions yesterday suggests he could be discharged from my end. He will be having close follow-up as an outpt with Dr Chisholm and Dr Sorto's teams through . I would also want GI to scope him here sooner rather than later, which he agrees with. Remain off aspirin for now. Thanks for the consult. Sofie, cell [phone] SERGEI AN MD May 11, 2018 07:12
[2018-05-11] MEDS ORDERED: PANTOPRAZOLE 40 MG TABLET.DR. PO SCH (07:30)
[2018-05-11 07:46] VITALS: BP 124/68
[2018-05-11 10:47] VITALS: BP 130/75
[2018-05-11] MEDS: LACTOBACILLUS RHAMNOSUS GG 1 CAPSULE. PO SCH (11:28)
--- NOTE | 2018-05-11 12:39 | PDOC ---
G I PROGRESS NOTE Reason for Follow-up Anemia Subjective Feeling better S/P transfusions Physical Exam Lungs clear CV S1 S2 ABD +BS, soft, nontender Review of Relevant I have reviewed the following items lyubov (where applicable) has been applied. Labs Laboratory Tests Test 05/10/18 09:36 05/10/18 10:27 05/10/18 10:41 05/10/18 18:45 White Blood Count 9.8 x10^3/uL (4.0-11.0) 9.6 x10^3/uL (4.0-11.0) Red Blood Count 1.89 x10^6/uL (4.30-5.70) 2.49 x10^6/uL (4.30-5.70) Hemoglobin 5.8 g/dL (13.0-17.5) 7.7 g/dL (13.0-17.5) Hematocrit 16.4 % (39.0-53.0) 21.6 % (39.0-53.0) Mean Corpuscular Volume 87 fL (79-100) 87 fL (79-100) Mean Corpuscular Hemoglobin 31 pg (25-35) 31 pg (25-35) Mean Corpuscular Hemoglobin Concent 36 g/dL (31-37) 36 g/dL (31-37) Red Cell Distribution Width 14.3 % (11.5-14.5) 14.5 % (11.5-14.5) Platelet Count 372 x10^3/uL (140-400) 360 x10^3/uL (140-400) Neutrophils (%) (Auto) 70 % (31-73) Lymphocytes (%) (Auto) 13 % (24-48) Monocytes (%) (Auto) 17 % (0-9) Eosinophils (%) (Auto) 0 % (0-3) Basophils (%) (Auto) 1 % (0-3) Neutrophils # (Auto) 6.9 x10^3uL (1.8-7.7) Lymphocytes # (Auto) 1.2 x10^3/uL (1.0-4.8) Monocytes # (Auto) 1.6 x10^3/uL (0.0-1.1) Eosinophils # (Auto) 0.0 x10^3/uL (0.0-0.7) Basophils # (Auto) 0.1 x10^3/uL (0.0-0.2) Prothrombin Time 14.9 SEC (11.7-14.0) Prothromb Time International Ratio 1.2 (0.8-1.1) Activated Partial Thromboplast Time 34 SEC (24-38) Sodium Level 136 mmol/L (136-145) Potassium Level 3.9 mmol/L (3.5-5.1) Chloride Level 102 mmol/L (98-107) Carbon Dioxide Level 25 mmol/L (21-32) Anion Gap 9 (6-14) Blood Urea Nitrogen 10 mg/dL (8-26) Creatinine 1.2 mg/dL (0.7-1.3) Estimated GFR (Cockcroft-Gault) 74.2 Glucose Level 112 mg/dL (70-99) Calcium Level 8.3 mg/dL (8.5-10.1) Iron Level 53 ug/dL (65-175) Total Iron Binding Capacity 137 ug/dL (250-450) Iron Saturation 39 % (15-34) Total Bilirubin 1.0 mg/dL (0.2-1.0) Direct Bilirubin 0.3 mg/dL (0.0-0.2) Aspartate Amino Transf (AST/SGOT) 22 U/L (15-37) Alanine Aminotransferase (ALT/SGPT) 27 U/L (16-63) Alkaline Phosphatase 324 U/L (46-116) Total Protein 6.9 g/dL (6.4-8.2) Albumin 2.9 g/dL (3.4-5.0) Urine Collection Type Void Urine Color Yellow Urine Clarity Clear Urine pH 6.5 Urine Specific [place] 1.010 Urine Protein Negative mg/dL (NEG-TRACE) Urine Glucose (UA) Negative mg/dL (NEG) Urine Ketones (Stick) Negative mg/dL (NEG) Urine Blood Negative (NEG) Urine Nitrite Positive (NEG) Urine Bilirubin Negative (NEG) Urine Urobilinogen Dipstick 4.0 mg/dL (0.2 mg/dL) Urine Leukocyte Esterase Moderate (NEG) Urine RBC Occ /HPF (0-2) Urine WBC 20-40 /HPF (0-4) Urine Squamous Epithelial Cells Few /LPF Urine Bacteria Many /HPF (0-FEW) Stool Occult Blood Positive (NEG) Test 05/11/18 03:00 White Blood Count 8.6 x10^3/uL (4.0-11.0) Red Blood Count 2.73 x10^6/uL (4.30-5.70) Hemoglobin 8.5 g/dL (13.0-17.5) Hematocrit 23.5 % (39.0-53.0) Mean Corpuscular Volume 86 fL (79-100) Mean Corpuscular Hemoglobin 31 pg (25-35) Mean Corpuscular Hemoglobin Concent 36 g/dL (31-37) Red Cell Distribution Width 14.7 % (11.5-14.5) Platelet Count 323 x10^3/uL (140-400) Neutrophils (%) (Auto) 59 % (31-73) Lymphocytes (%) (Auto) 24 % (24-48) Monocytes (%) (Auto) 16 % (0-9) Eosinophils (%) (Auto) 2 % (0-3) Basophils (%) (Auto) 0 % (0-3) Neutrophils # (Auto) 5.1 x10^3uL (1.8-7.7) Lymphocytes # (Auto) 2.1 x10^3/uL (1.0-4.8) Monocytes # (Auto) 1.3 x10^3/uL (0.0-1.1) Eosinophils # (Auto) 0.1 x10^3/uL (0.0-0.7) Basophils # (Auto) 0.0 x10^3/uL (0.0-0.2) Erythrocyte Sedimentation Rate 55 (0-15) Reticulocyte Count (auto) 0.4 % (0.5-2.5) Sodium Level 138 mmol/L (136-145) Potassium Level 4.1 mmol/L (3.5-5.1) Chloride Level 106 mmol/L (98-107) Carbon Dioxide Level 24 mmol/L (21-32) Anion Gap 8 (6-14) Blood Urea Nitrogen 12 mg/dL (8-26) Creatinine 1.1 mg/dL (0.7-1.3) Estimated GFR (Cockcroft-Gault) 82.1 BUN/Creatinine Ratio 11 (6-20) Glucose Level 106 mg/dL (70-99) Calcium Level 8.1 mg/dL (8.5-10.1) Total Bilirubin 0.7 mg/dL (0.2-1.0) Aspartate Amino Transf (AST/SGOT) 22 U/L (15-37) Alanine Aminotransferase (ALT/SGPT) 26 U/L (16-63) Alkaline Phosphatase 295 U/L (46-116) C-Reactive Protein, Quantitative 104.2 mg/L (0-3.3) Total Protein 6.4 g/dL (6.4-8.2) Albumin 2.6 g/dL (3.4-5.0) Albumin/Globulin Ratio 0.7 (1.0-1.7) Laboratory Tests Test 05/10/18 18:45 05/11/18 03:00 White Blood Count 9.6 x10^3/uL (4.0-11.0) 8.6 x10^3/uL (4.0-11.0) Red Blood Count 2.49 x10^6/uL (4.30-5.70) 2.73 x10^6/uL (4.30-5.70) Hemoglobin 7.7 g/dL (13.0-17.5) 8.5 g/dL (13.0-17.5) Hematocrit 21.6 % (39.0-53.0) 23.5 % (39.0-53.0) Mean Corpuscular Volume 87 fL (79-100) 86 fL (79-100) Mean Corpuscular Hemoglobin 31 pg (25-35) 31 pg (25-35) Mean Corpuscular Hemoglobin Concent 36 g/dL (31-37) 36 g/dL (31-37) Red Cell Distribution Width 14.5 % (11.5-14.5) 14.7 % (11.5-14.5) Platelet Count 360 x10^3/uL (140-400) 323 x10^3/uL (140-400) Neutrophils (%) (Auto) 59 % (31-73) Lymphocytes (%) (Auto) 24 % (24-48) Monocytes (%) (Auto) 16 % (0-9) Eosinophils (%) (Auto) 2 % (0-3) Basophils (%) (Auto) 0 % (0-3) Neutrophils # (Auto) 5.1 x10^3uL (1.8-7.7) Lymphocytes # (Auto) 2.1 x10^3/uL (1.0-4.8) Monocytes # (Auto) 1.3 x10^3/uL (0.0-1.1) Eosinophils # (Auto) 0.1 x10^3/uL (0.0-0.7) Basophils # (Auto) 0.0 x10^3/uL (0.0-0.2) Erythrocyte Sedimentation Rate 55 (0-15) Reticulocyte Count (auto) 0.4 % (0.5-2.5) Sodium Level 138 mmol/L (136-145) Potassium Level 4.1 mmol/L (3.5-5.1) Chloride Level 106 mmol/L (98-107) Carbon Dioxide Level 24 mmol/L (21-32) Anion Gap 8 (6-14) Blood Urea Nitrogen 12 mg/dL (8-26) Creatinine 1.1 mg/dL (0.7-1.3) Estimated GFR (Cockcroft-Gault) 82.1 BUN/Creatinine Ratio 11 (6-20) Glucose Level 106 mg/dL (70-99) Calcium Level 8.1 mg/dL (8.5-10.1) Total Bilirubin 0.7 mg/dL (0.2-1.0) Aspartate Amino Transf (AST/SGOT) 22 U/L (15-37) Alanine Aminotransferase (ALT/SGPT) 26 U/L (16-63) Alkaline Phosphatase 295 U/L (46-116) C-Reactive Protein, Quantitative 104.2 mg/L (0-3.3) Total Protein 6.4 g/dL (6.4-8.2) Albumin 2.6 g/dL (3.4-5.0) Albumin/Globulin Ratio 0.7 (1.0-1.7) Medications Current Medications Acetaminophen (Tylenol) 1,000 mg 1X ONCE PO Last administered on 05/10/18at 10: 38; Start 05/10/18 at 10:45; Stop 05/10/18 at 10:46; Status DC Ondansetron HCl (Zofran) 4 mg PRN Q8HRS PRN IV NAUSEA/VOMITING; Start 05/10/18 at 11:15; Stop 05/10/18 at 12:04; Status DC Acetaminophen (Tylenol) 650 mg PRN Q4HRS PRN PO FEVER Last administered on at 21:27; Start 05/10/18 at 11:15; Stop 05/11/18 at 11:14; Status DC Levofloxacin (Levaquin) 500 mg DAILY06 PO ; Start 05/10/18 at 12:00; Stop at 12:04; Status DC Lactobacillus Rhamnosus (Culturelle) 1 cap BID PO Last administered on at 11:28; Start 05/10/18 at 21:00 Ondansetron HCl (Zofran) 4 mg PRN Q6HRS PRN IV NAUSEA/VOMITING 1ST CHOICE; Start 05/10/18 at 12:15 Levofloxacin/ Dextrose (Levaquin Per Pharmacy) 1 each PRN DAILY PRN [facility] SEE COMMENTS; Start 05/10/18 at 12:15 Morphine Sulfate (Morphine Sulfate) 2 mg PRN Q2HR PRN IV PAIN SEVERE; Start 05/10/18 at 12:15 Acetaminophen/ Hydrocodone Bitart (Lortab 5/325) 1 tab PRN Q4HRS PRN PO PAIN; Start 05/10/18 at 12:15 Diphenhydramine HCl (Benadryl) 25 mg PRN QHS PRN PO INSOMNIA; Start 05/10/18 at 12:15 Levofloxacin (Levaquin) 250 mg DAILY06 PO Last administered on 05/11/18at 06:20; Start 05/10/18 at 13:00 Pantoprazole Sodium (Protonix) 40 mg DAILYAC PO Last administered on 05/11/18at 11:28; Start 05/11/18 at 07:30 Pantoprazole Sodium (Protonix) 40 mg 1X ONCE PO Last administered on 05/10/18at 13:17; Start 05/10/18 at 12:45; Stop 05/10/18 at 12:46; Status DC Vitals/I & O Vital Sign - Last 24 Hours 05/10/18 05/10/18 05/10/18 05/10/18 13:15 15:15 15:33 15:48 Temp 98.9 98.4 98.4 98.2 98.9 98.4 98.4 98.2 Pulse 92 85 84 82 Resp 16 18 16 16 B/P (MAP) 120/57 115/63 (80) 115/63 110/61 Pulse Ox 99 O2 Delivery Room Air 05/10/18 05/10/18 05/10/18 05/10/18 16:48 17:47 19:05 20:00 Temp 98.2 98.1 98.8 98.2 98.1 98.8 Pulse 93 89 86 Resp 14 16 18 B/P (MAP) 133/71 132/56 125/70 (88) Pulse Ox 98 O2 Delivery Room Air Room Air 05/10/18 05/10/18 05/10/18 05/10/18 21:15 21:20 21:35 22:32 Temp 98.8 98.3 98.4 98.5 98.8 98.3 98.4 98.5 Pulse 90 85 86 89 Resp 18 B/P (MAP) 125/70 139/72 127/75 158/79 05/10/18 05/10/18 05/11/18 05/11/18 23:00 23:31 00:30 03:50 Temp 98.7 98.3 98.7 98.7 98.3 98.7 Pulse 86 83 80 Resp 18 B/P (MAP) 158/79 (105) 133/74 144/87 128/75 (92) Pulse Ox 96 O2 Delivery Room Air 05/11/18 05/11/18 05/11/18 07:46 08:00 10:47 Temp 98.0 97.9 98.0 97.9 Pulse 78 81 Resp 18 B/P (MAP) 124/68 (86) 130/75 (93) Pulse Ox 97 98 O2 Delivery Room Air Room Air Room Air Intake and Output 05/10/18 05/10/18 05/11/18 15:00 23:00 07:00 Intake Total 310 ml 2010 ml Output Total 1250 ml 975 ml 1550 ml Balance -940 ml 1035 ml -1550 ml Problem List Problems Medical Problems: (1) Anemia Status: Acute (2) GI bleed Status: Acute (3) Urinary tract infection Status: Acute Assessment Anemia- with mixed indices, endoscopic evaluation to assess for GI source, EGD/ colonoscopy as O/P.My office to arrange If unrevealing, SB series/capsule endoscopy as well as bone marrow biopsy may be needed KRYSTEN ORDOÑEZ MD May 11, 2018 12:39
--- NOTE | 2018-05-11 13:11 | PDOC2 ---
CONSULT Date of Consult Date of Consult DATE: 05/11/18 TIME: 12:59 Reason for Consult Reason for Consult: left hip hematoma Identification/Chief Complaint Chief Complaint recent left hip surgery, no pain Source Source: Chart review, Patient History of Present Illness Reason for Visit: The patient is a 62 year old male admitted with anemia. He had left metal-on- metal total hip arthro[place] [address] Tran and had revision left total hip arthroplasty on 03/18/[address] Sorto. He states he has no hip pain and has done well since surgery as far as the hip goes. He has had multiple incidences of anemia since surgery requiring transfusion. His hemoglobin is up to 8.5 today after transfusion of 3 units PRBCs. CRP 104.2 and ESR 55, which were reportedly elevated before surgery as well. Past Medical History Cardiovascular: HTN Pulmonary: Bronchitis GI: No pertinent hx Heme/Onc: No pertinent hx Hepatobiliary: No pertinent hx Musculoskeletal: Osteoarthritis Renal/: No pertinent hx Endocrine: No pertinent hx Dermatology: No pertinent hx Past Surgical History Past Surgical History: Total hip replacement (primary in 2003 with revision 06/26) Family History Family History: No Significant Social History No ALCOHOL: none Drugs: None Lives: with Family Current Problem List Problem List Problems Medical Problems: (1) Anemia Status: Acute (2) GI bleed Status: Acute (3) Urinary tract infection Status: Acute Current Medications Current Medications Current Medications Acetaminophen (Tylenol) 1,000 mg 1X ONCE PO Last administered on 05/10/18at 10: 38; Start 05/10/18 at 10:45; Stop 05/10/18 at 10:46; Status DC Ondansetron HCl (Zofran) 4 mg PRN Q8HRS PRN IV NAUSEA/VOMITING; Start 05/10/18 at 11:15; Stop 05/10/18 at 12:04; Status DC Acetaminophen (Tylenol) 650 mg PRN Q4HRS PRN PO FEVER Last administered on at 21:27; Start 05/10/18 at 11:15; Stop 05/11/18 at 11:14; Status DC Levofloxacin (Levaquin) 500 mg DAILY06 PO ; Start 05/10/18 at 12:00; Stop at 12:04; Status DC Lactobacillus Rhamnosus (Culturelle) 1 cap BID PO Last administered on at 11:28; Start 05/10/18 at 21:00 Ondansetron HCl (Zofran) 4 mg PRN Q6HRS PRN IV NAUSEA/VOMITING 1ST CHOICE; Start 05/10/18 at 12:15 Levofloxacin/ Dextrose (Levaquin Per Pharmacy) 1 each PRN DAILY PRN [facility] SEE COMMENTS; Start 05/10/18 at 12:15 Morphine Sulfate (Morphine Sulfate) 2 mg PRN Q2HR PRN IV PAIN SEVERE; Start 05/10/18 at 12:15 Acetaminophen/ Hydrocodone Bitart (Lortab 5/325) 1 tab PRN Q4HRS PRN PO PAIN; Start 05/10/18 at 12:15 Diphenhydramine HCl (Benadryl) 25 mg PRN QHS PRN PO INSOMNIA; Start 05/10/18 at 12:15 Levofloxacin (Levaquin) 250 mg DAILY06 PO Last administered on 05/11/18at 06:20; Start 05/10/18 at 13:00 Pantoprazole Sodium (Protonix) 40 mg DAILYAC PO Last administered on 05/11/18at 11:28; Start 05/11/18 at 07:30 Pantoprazole Sodium (Protonix) 40 mg 1X ONCE PO Last administered on 05/10/18at 13:17; Start 05/10/18 at 12:45; Stop 05/10/18 at 12:46; Status DC Allergies Allergies: Coded Allergies: No Known Drug Allergies (Unverified , 05/10/18) Physical Exam General: Alert, Oriented X3, Cooperative, No acute distress HEENT: Atraumatic, EOMI Lungs: Normal air movement Heart: Regular rate Abdomen: Soft Extremities: No clubbing, No cyanosis, Normal pulses Skin: No rashes, No breakdown, No significant lesion Neuro: Normal speech, Sensation intact Psych/Mental Status: Mental status NL, Mood NL MUSCULOSKELETAL: Other (The left hip incision is clean, dry, and intact. Well- healed with no evidence of infection. No surrounding erythema or warmth. Minimal swelling. No tenderness to palpation about the hip. Full range of motion of left hip, without pain. Strength intact. Thigh and calf soft and nontender with negative Suzanne's sign. Good dorsiflexion and plantarflexion at foot, with no evidence of neurovascular injury. Peripheral pulses and light touch sensation intact. ) Vitals VITALS Vital Signs Date Time Temp Pulse Resp B/P (MAP) Pulse Ox O2 Delivery O2 Flow Rate FiO2 05/11/18 10:47 97.9 81 18 130/75 (93) 98 Room Air 97.9 Labs Labs Laboratory Tests Test 05/10/18 09:36 05/10/18 10:27 05/10/18 10:41 05/10/18 18:45 White Blood Count 9.8 x10^3/uL (4.0-11.0) 9.6 x10^3/uL (4.0-11.0) Red Blood Count 1.89 x10^6/uL (4.30-5.70) 2.49 x10^6/uL (4.30-5.70) Hemoglobin 5.8 g/dL (13.0-17.5) 7.7 g/dL (13.0-17.5) Hematocrit 16.4 % (39.0-53.0) 21.6 % (39.0-53.0) Mean Corpuscular Volume 87 fL (79-100) 87 fL (79-100) Mean Corpuscular Hemoglobin 31 pg (25-35) 31 pg (25-35) Mean Corpuscular Hemoglobin Concent 36 g/dL (31-37) 36 g/dL (31-37) Red Cell Distribution Width 14.3 % (11.5-14.5) 14.5 % (11.5-14.5) Platelet Count 372 x10^3/uL (140-400) 360 x10^3/uL (140-400) Neutrophils (%) (Auto) 70 % (31-73) Lymphocytes (%) (Auto) 13 % (24-48) Monocytes (%) (Auto) 17 % (0-9) Eosinophils (%) (Auto) 0 % (0-3) Basophils (%) (Auto) 1 % (0-3) Neutrophils # (Auto) 6.9 x10^3uL (1.8-7.7) Lymphocytes # (Auto) 1.2 x10^3/uL (1.0-4.8) Monocytes # (Auto) 1.6 x10^3/uL (0.0-1.1) Eosinophils # (Auto) 0.0 x10^3/uL (0.0-0.7) Basophils # (Auto) 0.1 x10^3/uL (0.0-0.2) Prothrombin Time 14.9 SEC (11.7-14.0) Prothromb Time International Ratio 1.2 (0.8-1.1) Activated Partial Thromboplast Time 34 SEC (24-38) Sodium Level 136 mmol/L (136-145) Potassium Level 3.9 mmol/L (3.5-5.1) Chloride Level 102 mmol/L (98-107) Carbon Dioxide Level 25 mmol/L (21-32) Anion Gap 9 (6-14) Blood Urea Nitrogen 10 mg/dL (8-26) Creatinine 1.2 mg/dL (0.7-1.3) Estimated GFR (Cockcroft-Gault) 74.2 Glucose Level 112 mg/dL (70-99) Calcium Level 8.3 mg/dL (8.5-10.1) Iron Level 53 ug/dL (65-175) Total Iron Binding Capacity 137 ug/dL (250-450) Iron Saturation 39 % (15-34) Total Bilirubin 1.0 mg/dL (0.2-1.0) Direct Bilirubin 0.3 mg/dL (0.0-0.2) Aspartate Amino Transf (AST/SGOT) 22 U/L (15-37) Alanine Aminotransferase (ALT/SGPT) 27 U/L (16-63) Alkaline Phosphatase 324 U/L (46-116) Total Protein 6.9 g/dL (6.4-8.2) Albumin 2.9 g/dL (3.4-5.0) Urine Collection Type Void Urine Color Yellow Urine Clarity Clear Urine pH 6.5 Urine Specific [place] 1.010 Urine Protein Negative mg/dL (NEG-TRACE) Urine Glucose (UA) Negative mg/dL (NEG) Urine Ketones (Stick) Negative mg/dL (NEG) Urine Blood Negative (NEG) Urine Nitrite Positive (NEG) Urine Bilirubin Negative (NEG) Urine Urobilinogen Dipstick 4.0 mg/dL (0.2 mg/dL) Urine Leukocyte Esterase Moderate (NEG) Urine RBC Occ /HPF (0-2) Urine WBC 20-40 /HPF (0-4) Urine Squamous Epithelial Cells Few /LPF Urine Bacteria Many /HPF (0-FEW) Stool Occult Blood Positive (NEG) Test 05/11/18 03:00 White Blood Count 8.6 x10^3/uL (4.0-11.0) Red Blood Count 2.73 x10^6/uL (4.30-5.70) Hemoglobin 8.5 g/dL (13.0-17.5) Hematocrit 23.5 % (39.0-53.0) Mean Corpuscular Volume 86 fL (79-100) Mean Corpuscular Hemoglobin 31 pg (25-35) Mean Corpuscular Hemoglobin Concent 36 g/dL (31-37) Red Cell Distribution Width 14.7 % (11.5-14.5) Platelet Count 323 x10^3/uL (140-400) Neutrophils (%) (Auto) 59 % (31-73) Lymphocytes (%) (Auto) 24 % (24-48) Monocytes (%) (Auto) 16 % (0-9) Eosinophils (%) (Auto) 2 % (0-3) Basophils (%) (Auto) 0 % (0-3) Neutrophils # (Auto) 5.1 x10^3uL (1.8-7.7) Lymphocytes # (Auto) 2.1 x10^3/uL (1.0-4.8) Monocytes # (Auto) 1.3 x10^3/uL (0.0-1.1) Eosinophils # (Auto) 0.1 x10^3/uL (0.0-0.7) Basophils # (Auto) 0.0 x10^3/uL (0.0-0.2) Erythrocyte Sedimentation Rate 55 (0-15) Reticulocyte Count (auto) 0.4 % (0.5-2.5) Sodium Level 138 mmol/L (136-145) Potassium Level 4.1 mmol/L (3.5-5.1) Chloride Level 106 mmol/L (98-107) Carbon Dioxide Level 24 mmol/L (21-32) Anion Gap 8 (6-14) Blood Urea Nitrogen 12 mg/dL (8-26) Creatinine 1.1 mg/dL (0.7-1.3) Estimated GFR (Cockcroft-Gault) 82.1 BUN/Creatinine Ratio 11 (6-20) Glucose Level 106 mg/dL (70-99) Calcium Level 8.1 mg/dL (8.5-10.1) Total Bilirubin 0.7 mg/dL (0.2-1.0) Aspartate Amino Transf (AST/SGOT) 22 U/L (15-37) Alanine Aminotransferase (ALT/SGPT) 26 U/L (16-63) Alkaline Phosphatase 295 U/L (46-116) C-Reactive Protein, Quantitative 104.2 mg/L (0-3.3) Total Protein 6.4 g/dL (6.4-8.2) Albumin 2.6 g/dL (3.4-5.0) Albumin/Globulin Ratio 0.7 (1.0-1.7) Laboratory Tests Test 05/10/18 18:45 05/11/18 03:00 White Blood Count 9.6 x10^3/uL (4.0-11.0) 8.6 x10^3/uL (4.0-11.0) Red Blood Count 2.49 x10^6/uL (4.30-5.70) 2.73 x10^6/uL (4.30-5.70) Hemoglobin 7.7 g/dL (13.0-17.5) 8.5 g/dL (13.0-17.5) Hematocrit 21.6 % (39.0-53.0) 23.5 % (39.0-53.0) Mean Corpuscular Volume 87 fL (79-100) 86 fL (79-100) Mean Corpuscular Hemoglobin 31 pg (25-35) 31 pg (25-35) Mean Corpuscular Hemoglobin Concent 36 g/dL (31-37) 36 g/dL (31-37) Red Cell Distribution Width 14.5 % (11.5-14.5) 14.7 % (11.5-14.5) Platelet Count 360 x10^3/uL (140-400) 323 x10^3/uL (140-400) Neutrophils (%) (Auto) 59 % (31-73) Lymphocytes (%) (Auto) 24 % (24-48) Monocytes (%) (Auto) 16 % (0-9) Eosinophils (%) (Auto) 2 % (0-3) Basophils (%) (Auto) 0 % (0-3) Neutrophils # (Auto) 5.1 x10^3uL (1.8-7.7) Lymphocytes # (Auto) 2.1 x10^3/uL (1.0-4.8) Monocytes # (Auto) 1.3 x10^3/uL (0.0-1.1) Eosinophils # (Auto) 0.1 x10^3/uL (0.0-0.7) Basophils # (Auto) 0.0 x10^3/uL (0.0-0.2) Erythrocyte Sedimentation Rate 55 (0-15) Reticulocyte Count (auto) 0.4 % (0.5-2.5) Sodium Level 138 mmol/L (136-145) Potassium Level 4.1 mmol/L (3.5-5.1) Chloride Level 106 mmol/L (98-107) Carbon Dioxide Level 24 mmol/L (21-32) Anion Gap 8 (6-14) Blood Urea Nitrogen 12 mg/dL (8-26) Creatinine 1.1 mg/dL (0.7-1.3) Estimated GFR (Cockcroft-Gault) 82.1 BUN/Creatinine Ratio 11 (6-20) Glucose Level 106 mg/dL (70-99) Calcium Level 8.1 mg/dL (8.5-10.1) Total Bilirubin 0.7 mg/dL (0.2-1.0) Aspartate Amino Transf (AST/SGOT) 22 U/L (15-37) Alanine Aminotransferase (ALT/SGPT) 26 U/L (16-63) Alkaline Phosphatase 295 U/L (46-116) C-Reactive Protein, Quantitative 104.2 mg/L (0-3.3) Total Protein 6.4 g/dL (6.4-8.2) Albumin 2.6 g/dL (3.4-5.0) Albumin/Globulin Ratio 0.7 (1.0-1.7) Images Images CT images and report reviewed. There is a small lateral hematoma seen on series 4 image 39. Assessment/Plan Assessment/Plan Left lateral hip hematoma with recent revision total hip arthroplasty. The patient is a 62 year old male with anemia, unknown etiology at this point, after recent revision total hip arthroplasty. There is a small lateral hip hematoma noted on CT. Exam of left hip is unremarkable with no concern for infection. CRP and ESR are elevated, and were reportedly elevated preoperatively as well, but are not concerning for infection. I recommended he apply ice to the left hip to help the hematoma resolve. He denies hip pain at this time. Hematology and GI are on board to help identify reason for anemia. The patient states he is having EGD outpatient Saturday or Saturday. He has a followup with his surgeon at , Dr. Sorto, on 05/27/18. No orthopedic intervention needed at this time. LYNN CHAUDHARY May 11, 2018 13:11
[2018-05-11] MEDS ORDERED: LEVO500T59 PO (13:37)
--- NOTE | 2018-05-11 13:58 | PDOC ---
PROGRESS NOTES Chief Complaint Chief Complaint Acute precipitous drop in hemoglobin Hemoccult-positive Melena Recent hip surgery 2 months ago Postop seroma or hematoma left hip Abnormal CT leg, rule out metastatic process Bronchitis Osteoarthritis History of Present Illness History of Present Illness Pt seen and examined Dw RN ABHIJEETS Pt states he is ready to go home and is to follow up w GI outpt Vitals Vitals Vital Signs Date Time Temp Pulse Resp B/P (MAP) Pulse Ox O2 Delivery O2 Flow Rate FiO2 05/11/18 10:47 97.9 81 18 130/75 (93) 98 Room Air 97.9 Physical Exam General: Alert, Oriented X3, Cooperative, No acute distress Heart: Regular rate, No murmurs Lungs: Clear Abdomen: Soft, No tenderness Extremities: No clubbing, No cyanosis, Normal pulses Skin: No rashes, No breakdown, No significant lesion Labs LABS Laboratory Tests Test 05/10/18 18:45 05/11/18 03:00 White Blood Count 9.6 x10^3/uL (4.0-11.0) 8.6 x10^3/uL (4.0-11.0) Red Blood Count 2.49 x10^6/uL (4.30-5.70) 2.73 x10^6/uL (4.30-5.70) Hemoglobin 7.7 g/dL (13.0-17.5) 8.5 g/dL (13.0-17.5) Hematocrit 21.6 % (39.0-53.0) 23.5 % (39.0-53.0) Mean Corpuscular Volume 87 fL (79-100) 86 fL (79-100) Mean Corpuscular Hemoglobin 31 pg (25-35) 31 pg (25-35) Mean Corpuscular Hemoglobin Concent 36 g/dL (31-37) 36 g/dL (31-37) Red Cell Distribution Width 14.5 % (11.5-14.5) 14.7 % (11.5-14.5) Platelet Count 360 x10^3/uL (140-400) 323 x10^3/uL (140-400) Neutrophils (%) (Auto) 59 % (31-73) Lymphocytes (%) (Auto) 24 % (24-48) Monocytes (%) (Auto) 16 % (0-9) Eosinophils (%) (Auto) 2 % (0-3) Basophils (%) (Auto) 0 % (0-3) Neutrophils # (Auto) 5.1 x10^3uL (1.8-7.7) Lymphocytes # (Auto) 2.1 x10^3/uL (1.0-4.8) Monocytes # (Auto) 1.3 x10^3/uL (0.0-1.1) Eosinophils # (Auto) 0.1 x10^3/uL (0.0-0.7) Basophils # (Auto) 0.0 x10^3/uL (0.0-0.2) Erythrocyte Sedimentation Rate 55 (0-15) Reticulocyte Count (auto) 0.4 % (0.5-2.5) Sodium Level 138 mmol/L (136-145) Potassium Level 4.1 mmol/L (3.5-5.1) Chloride Level 106 mmol/L (98-107) Carbon Dioxide Level 24 mmol/L (21-32) Anion Gap 8 (6-14) Blood Urea Nitrogen 12 mg/dL (8-26) Creatinine 1.1 mg/dL (0.7-1.3) Estimated GFR (Cockcroft-Gault) 82.1 BUN/Creatinine Ratio 11 (6-20) Glucose Level 106 mg/dL (70-99) Calcium Level 8.1 mg/dL (8.5-10.1) Total Bilirubin 0.7 mg/dL (0.2-1.0) Aspartate Amino Transf (AST/SGOT) 22 U/L (15-37) Alanine Aminotransferase (ALT/SGPT) 26 U/L (16-63) Alkaline Phosphatase 295 U/L (46-116) C-Reactive Protein, Quantitative 104.2 mg/L (0-3.3) Total Protein 6.4 g/dL (6.4-8.2) Albumin 2.6 g/dL (3.4-5.0) Albumin/Globulin Ratio 0.7 (1.0-1.7) Review of Systems Review of Systems CO fatigue CO hunger Assessment and Plan Assessmemt and Plan Problems Medical Problems: (1) Anemia Status: Acute (2) GI bleed Status: Acute (3) Urinary tract infection Status: Acute Acute precipitous drop in hemoglobin Hemoccult-positive Melena Recent hip surgery 2 months ago Postop seroma or hematoma left hip Abnormal CT leg, rule out metastatic process Bronchitis Osteoarthritis Plan: Monitor labs PT/OT Home meds Fu GI and ortho outpt Probable D/C to home today Appreciate subspecialist input Comment Review of Relevant I have reviewed the following items lyubov (where applicable) has been applied. Labs Laboratory Tests Test 05/10/18 09:36 05/10/18 10:27 05/10/18 10:41 05/10/18 18:45 White Blood Count 9.8 x10^3/uL (4.0-11.0) 9.6 x10^3/uL (4.0-11.0) Red Blood Count 1.89 x10^6/uL (4.30-5.70) 2.49 x10^6/uL (4.30-5.70) Hemoglobin 5.8 g/dL (13.0-17.5) 7.7 g/dL (13.0-17.5) Hematocrit 16.4 % (39.0-53.0) 21.6 % (39.0-53.0) Mean Corpuscular Volume 87 fL (79-100) 87 fL (79-100) Mean Corpuscular Hemoglobin 31 pg (25-35) 31 pg (25-35) Mean Corpuscular Hemoglobin Concent 36 g/dL (31-37) 36 g/dL (31-37) Red Cell Distribution Width 14.3 % (11.5-14.5) 14.5 % (11.5-14.5) Platelet Count 372 x10^3/uL (140-400) 360 x10^3/uL (140-400) Neutrophils (%) (Auto) 70 % (31-73) Lymphocytes (%) (Auto) 13 % (24-48) Monocytes (%) (Auto) 17 % (0-9) Eosinophils (%) (Auto) 0 % (0-3) Basophils (%) (Auto) 1 % (0-3) Neutrophils # (Auto) 6.9 x10^3uL (1.8-7.7) Lymphocytes # (Auto) 1.2 x10^3/uL (1.0-4.8) Monocytes # (Auto) 1.6 x10^3/uL (0.0-1.1) Eosinophils # (Auto) 0.0 x10^3/uL (0.0-0.7) Basophils # (Auto) 0.1 x10^3/uL (0.0-0.2) Prothrombin Time 14.9 SEC (11.7-14.0) Prothromb Time International Ratio 1.2 (0.8-1.1) Activated Partial Thromboplast Time 34 SEC (24-38) Sodium Level 136 mmol/L (136-145) Potassium Level 3.9 mmol/L (3.5-5.1) Chloride Level 102 mmol/L (98-107) Carbon Dioxide Level 25 mmol/L (21-32) Anion Gap 9 (6-14) Blood Urea Nitrogen 10 mg/dL (8-26) Creatinine 1.2 mg/dL (0.7-1.3) Estimated GFR (Cockcroft-Gault) 74.2 Glucose Level 112 mg/dL (70-99) Calcium Level 8.3 mg/dL (8.5-10.1) Iron Level 53 ug/dL (65-175) Total Iron Binding Capacity 137 ug/dL (250-450) Iron Saturation 39 % (15-34) Total Bilirubin 1.0 mg/dL (0.2-1.0) Direct Bilirubin 0.3 mg/dL (0.0-0.2) Aspartate Amino Transf (AST/SGOT) 22 U/L (15-37) Alanine Aminotransferase (ALT/SGPT) 27 U/L (16-63) Alkaline Phosphatase 324 U/L (46-116) Total Protein 6.9 g/dL (6.4-8.2) Albumin 2.9 g/dL (3.4-5.0) Urine Collection Type Void Urine Color Yellow Urine Clarity Clear Urine pH 6.5 Urine Specific [place] 1.010 Urine Protein Negative mg/dL (NEG-TRACE) Urine Glucose (UA) Negative mg/dL (NEG) Urine Ketones (Stick) Negative mg/dL (NEG) Urine Blood Negative (NEG) Urine Nitrite Positive (NEG) Urine Bilirubin Negative (NEG) Urine Urobilinogen Dipstick 4.0 mg/dL (0.2 mg/dL) Urine Leukocyte Esterase Moderate (NEG) Urine RBC Occ /HPF (0-2) Urine WBC 20-40 /HPF (0-4) Urine Squamous Epithelial Cells Few /LPF Urine Bacteria Many /HPF (0-FEW) Stool Occult Blood Positive (NEG) Test 05/11/18 03:00 White Blood Count 8.6 x10^3/uL (4.0-11.0) Red Blood Count 2.73 x10^6/uL (4.30-5.70) Hemoglobin 8.5 g/dL (13.0-17.5) Hematocrit 23.5 % (39.0-53.0) Mean Corpuscular Volume 86 fL (79-100) Mean Corpuscular Hemoglobin 31 pg (25-35) Mean Corpuscular Hemoglobin Concent 36 g/dL (31-37) Red Cell Distribution Width 14.7 % (11.5-14.5) Platelet Count 323 x10^3/uL (140-400) Neutrophils (%) (Auto) 59 % (31-73) Lymphocytes (%) (Auto) 24 % (24-48) Monocytes (%) (Auto) 16 % (0-9) Eosinophils (%) (Auto) 2 % (0-3) Basophils (%) (Auto) 0 % (0-3) Neutrophils # (Auto) 5.1 x10^3uL (1.8-7.7) Lymphocytes # (Auto) 2.1 x10^3/uL (1.0-4.8) Monocytes # (Auto) 1.3 x10^3/uL (0.0-1.1) Eosinophils # (Auto) 0.1 x10^3/uL (0.0-0.7) Basophils # (Auto) 0.0 x10^3/uL (0.0-0.2) Erythrocyte Sedimentation Rate 55 (0-15) Reticulocyte Count (auto) 0.4 % (0.5-2.5) Sodium Level 138 mmol/L (136-145) Potassium Level 4.1 mmol/L (3.5-5.1) Chloride Level 106 mmol/L (98-107) Carbon Dioxide Level 24 mmol/L (21-32) Anion Gap 8 (6-14) Blood Urea Nitrogen 12 mg/dL (8-26) Creatinine 1.1 mg/dL (0.7-1.3) Estimated GFR (Cockcroft-Gault) 82.1 BUN/Creatinine Ratio 11 (6-20) Glucose Level 106 mg/dL (70-99) Calcium Level 8.1 mg/dL (8.5-10.1) Total Bilirubin 0.7 mg/dL (0.2-1.0) Aspartate Amino Transf (AST/SGOT) 22 U/L (15-37) Alanine Aminotransferase (ALT/SGPT) 26 U/L (16-63) Alkaline Phosphatase 295 U/L (46-116) C-Reactive Protein, Quantitative 104.2 mg/L (0-3.3) Total Protein 6.4 g/dL (6.4-8.2) Albumin 2.6 g/dL (3.4-5.0) Albumin/Globulin Ratio 0.7 (1.0-1.7) Laboratory Tests Test 05/10/18 18:45 05/11/18 03:00 White Blood Count 9.6 x10^3/uL (4.0-11.0) 8.6 x10^3/uL (4.0-11.0) Red Blood Count 2.49 x10^6/uL (4.30-5.70) 2.73 x10^6/uL (4.30-5.70) Hemoglobin 7.7 g/dL (13.0-17.5) 8.5 g/dL (13.0-17.5) Hematocrit 21.6 % (39.0-53.0) 23.5 % (39.0-53.0) Mean Corpuscular Volume 87 fL (79-100) 86 fL (79-100) Mean Corpuscular Hemoglobin 31 pg (25-35) 31 pg (25-35) Mean Corpuscular Hemoglobin Concent 36 g/dL (31-37) 36 g/dL (31-37) Red Cell Distribution Width 14.5 % (11.5-14.5) 14.7 % (11.5-14.5) Platelet Count 360 x10^3/uL (140-400) 323 x10^3/uL (140-400) Neutrophils (%) (Auto) 59 % (31-73) Lymphocytes (%) (Auto) 24 % (24-48) Monocytes (%) (Auto) 16 % (0-9) Eosinophils (%) (Auto) 2 % (0-3) Basophils (%) (Auto) 0 % (0-3) Neutrophils # (Auto) 5.1 x10^3uL (1.8-7.7) Lymphocytes # (Auto) 2.1 x10^3/uL (1.0-4.8) Monocytes # (Auto) 1.3 x10^3/uL (0.0-1.1) Eosinophils # (Auto) 0.1 x10^3/uL (0.0-0.7) Basophils # (Auto) 0.0 x10^3/uL (0.0-0.2) Erythrocyte Sedimentation Rate 55 (0-15) Reticulocyte Count (auto) 0.4 % (0.5-2.5) Sodium Level 138 mmol/L (136-145) Potassium Level 4.1 mmol/L (3.5-5.1) Chloride Level 106 mmol/L (98-107) Carbon Dioxide Level 24 mmol/L (21-32) Anion Gap 8 (6-14) Blood Urea Nitrogen 12 mg/dL (8-26) Creatinine 1.1 mg/dL (0.7-1.3) Estimated GFR (Cockcroft-Gault) 82.1 BUN/Creatinine Ratio 11 (6-20) Glucose Level 106 mg/dL (70-99) Calcium Level 8.1 mg/dL (8.5-10.1) Total Bilirubin 0.7 mg/dL (0.2-1.0) Aspartate Amino Transf (AST/SGOT) 22 U/L (15-37) Alanine Aminotransferase (ALT/SGPT) 26 U/L (16-63) Alkaline Phosphatase 295 U/L (46-116) C-Reactive Protein, Quantitative 104.2 mg/L (0-3.3) Total Protein 6.4 g/dL (6.4-8.2) Albumin 2.6 g/dL (3.4-5.0) Albumin/Globulin Ratio 0.7 (1.0-1.7) Medications Current Medications Acetaminophen (Tylenol) 1,000 mg 1X ONCE PO Last administered on 05/10/18at 10: 38; Start 05/10/18 at 10:45; Stop 05/10/18 at 10:46; Status DC Ondansetron HCl (Zofran) 4 mg PRN Q8HRS PRN IV NAUSEA/VOMITING; Start 05/10/18 at 11:15; Stop 05/10/18 at 12:04; Status DC Acetaminophen (Tylenol) 650 mg PRN Q4HRS PRN PO FEVER Last administered on at 21:27; Start 05/10/18 at 11:15; Stop 05/11/18 at 11:14; Status DC Levofloxacin (Levaquin) 500 mg DAILY06 PO ; Start 05/10/18 at 12:00; Stop at 12:04; Status DC Lactobacillus Rhamnosus (Culturelle) 1 cap BID PO Last administered on at 11:28; Start 05/10/18 at 21:00 Ondansetron HCl (Zofran) 4 mg PRN Q6HRS PRN IV NAUSEA/VOMITING 1ST CHOICE; Start 05/10/18 at 12:15 Levofloxacin/ Dextrose (Levaquin Per Pharmacy) 1 each PRN DAILY PRN MC SEE COMMENTS; Start 05/10/18 at 12:15 Morphine Sulfate (Morphine Sulfate) 2 mg PRN Q2HR PRN IV PAIN SEVERE; Start 05/10/18 at 12:15 Acetaminophen/ Hydrocodone Bitart (Lortab 5/325) 1 tab PRN Q4HRS PRN PO PAIN; Start 05/10/18 at 12:15 Diphenhydramine HCl (Benadryl) 25 mg PRN QHS PRN PO INSOMNIA; Start 05/10/18 at 12:15 Levofloxacin (Levaquin) 250 mg DAILY06 PO Last administered on 05/11/18at 06:20; Start 05/10/18 at 13:00 Pantoprazole Sodium (Protonix) 40 mg DAILYAC PO Last administered on 05/11/18at 11:28; Start 05/11/18 at 07:30 Pantoprazole Sodium (Protonix) 40 mg 1X ONCE PO Last administered on 05/10/18at 13:17; Start 05/10/18 at 12:45; Stop 05/10/18 at 12:46; Status DC Active Scripts Active Reported Levaquin (Levofloxacin) 500 Mg Tablet 250 Mg PO DAILY Vitals/I & O Vital Sign - Last 24 Hours 05/10/18 05/10/18 05/10/18 05/10/18 15:15 15:33 15:48 16:48 Temp 98.4 98.4 98.2 98.2 98.4 98.4 98.2 98.2 Pulse 85 84 82 93 Resp 18 16 16 14 B/P (MAP) 115/63 (80) 115/63 110/61 133/71 Pulse Ox 99 O2 Delivery Room Air 05/10/18 05/10/18 05/10/18 05/10/18 17:47 19:05 20:00 21:15 Temp 98.1 98.8 98.8 98.1 98.8 98.8 Pulse 89 86 90 Resp 18 B/P (MAP) 132/56 125/70 (88) 125/70 Pulse Ox 98 O2 Delivery Room Air Room Air 05/10/18 05/10/18 05/10/18 05/10/18 21:20 21:35 22:32 23:00 Temp 98.3 98.4 98.5 98.3 98.4 98.5 Pulse 85 86 89 Resp 18 B/P (MAP) 139/72 127/75 158/79 158/79 (105) 05/10/18 05/11/18 05/11/18 05/11/18 23:31 00:30 03:50 07:46 Temp 98.7 98.3 98.7 98.0 98.7 98.3 98.7 98.0 Pulse 86 83 80 78 Resp 18 20 B/P (MAP) 133/74 144/87 128/75 (92) 124/68 (86) Pulse Ox 96 97 O2 Delivery Room Air Room Air 05/11/18 05/11/18 08:00 10:47 Temp 97.9 97.9 Pulse 81 Resp 18 B/P (MAP) 130/75 (93) Pulse Ox 98 O2 Delivery Room Air Room Air Intake and Output 05/10/18 05/10/18 05/11/18 15:00 23:00 07:00 Intake Total 310 ml 2010 ml Output Total 1250 ml 975 ml 1550 ml Balance -940 ml 1035 ml -1550 ml HEAVEN APPIAH III DO May 11, 2018 13:58
== END 2018-05-11 14:00 | disposition home or self-care (01) | DRG 812 ==
LOC: ER 09:03 → 2 NORTH 10:15
PROVIDERS: ADMIT Internal Medicine; ATTEND Internal Medicine
PROC: 30233N1 Transfusion of Nonautologous Red Blood Cells into Peripheral Vein, Percutaneous Approach (ICD-10-PCS; principal; 2018-05-10)
DX: D64.9 Anemia, unspecified (principal); M96.840 Postprocedural hematoma of a musculoskeletal structure following a musculoskeletal system procedure; I10 Essential (primary) hypertension; Z96.642 Presence of left artificial hip joint; M19.90 Unspecified osteoarthritis, unspecified site; J40 Bronchitis, not specified as acute or chronic; Y83.8 Other surgical procedures as the cause of abnormal reaction of the patient, or of later complication, without mention of misadventure at the time of the procedure; K21.9 Gastro-esophageal reflux disease without esophagitis
CPT/HCPCS: 36415; 73700; 80048; 80053; 80076; 81001; 82274; 82607; 82746; 83540; 83550; 85025; 85027; 85045; 85610; 85651; 85730; 86140; 86850; 86900; 86901; 86920; 87086; 87186; P9016; 97530; 99285-25

== ENCOUNTER → 2018-05-21 | Day surgery (SDC) | payer BC ==
[~2018-05-21] MED LIST: HYDROmorphone 2 MG/ML VIAL IV PRN; IV RINGERS,LACTATED 1000ML 1,000 ML IV SCH; LEVO500T59 PO; LIDOCAINE 1% PF 2 ML VIAL. ID PRN; LIDOCAINE 2% PF Vial for OR 5 ML VIAL. ONE; MORPHINE SULFATE 2 MG/ML VIAL. IV PRN; PROCHLORPERAZINE 10 MG/2 ML VIAL. IV PRN; PROPOFOL 60 ML IV ONE; fentaNYL PF VIAL 100 MCG/2 ML VIAL IV PRN
[2018-05-21 08:10] VITALS: BP 125/83
== END | disposition home or self-care (01) ==
LOC: ENDOS 06:07
PROVIDERS: ATTEND Internal Medicine Gastroenterology
DX: K64.0 First degree hemorrhoids (principal); K44.9 Diaphragmatic hernia without obstruction or gangrene; D50.0 Iron deficiency anemia secondary to blood loss (chronic); I10 Essential (primary) hypertension; M19.90 Unspecified osteoarthritis, unspecified site; Z79.2 Long term (current) use of antibiotics; Z79.899 Other long term (current) drug therapy; Z96.642 Presence of left artificial hip joint
CPT/HCPCS: 43235; 45378; J2001; J2704

== ENCOUNTER 2018-06-16 11:25 | Inpatient (IN) | payer BC ==
[~2018-06-16] VITALS: Ht 188 cm; Wt 90.7 kg
[2018-06-16] VITALS (12 sets, daily range): BP systolic 107–138; BP diastolic 68–77
[~2018-06-16 11:25] MED LIST changes: -HYDROmorphone 2 MG/ML VIAL IV PRN; -IV RINGERS,LACTATED 1000ML 1,000 ML IV SCH; -LIDOCAINE 1% PF 2 ML VIAL. ID PRN; -LIDOCAINE 2% PF Vial for OR 5 ML VIAL. ONE; -MORPHINE SULFATE 2 MG/ML VIAL. IV PRN; -PROCHLORPERAZINE 10 MG/2 ML VIAL. IV PRN; -PROPOFOL 60 ML IV ONE; -fentaNYL PF VIAL 100 MCG/2 ML VIAL IV PRN
[2018-06-16 12:50] LABS: BASO % 1 % (0-3); EOS % 0 % (0-3); LYMPH # 0.8 x10^3/uL (1.0-4.8); LYMPH % 12 % (24-48); MEAN CORPUSCULAR HEMOGLOBIN 31 pg (25-35); MEAN CORPUSCULAR HGB CONC 36 g/dL (31-37); MEAN CORPUSCULAR VOLUME 86 fL (79-100); MONO # 0.6 x10^3/uL (0.0-1.1); MONO % 9 % (0-9); NEUT # 4.9 x10^3uL (1.8-7.7); NEUT % 78 % (31-73); PLATELET COUNT 232 x10^3/uL (140-400); RED BLOOD COUNT 1.43 x10^6/uL (4.30-5.70); RED CELL DISTRIBUTION WIDTH 15.5 % (11.5-14.5); WHITE BLOOD COUNT 6.3 x10^3/uL (4.0-11.0)
[2018-06-16 12:55] LABS: HEMATOCRIT 12.2 % (39.0-53.0); HEMOGLOBIN 4.4 g/dL (13.0-17.5)
[2018-06-16 12:59] LABS: PROTHROMBIN TIME PATIENT 15.3 SEC (11.7-14.0)
[2018-06-16 13:00] LABS: CALCIUM 8.5 mg/dL (8.5-10.1); GFR 91.6; POTASSIUM 3.9 mmol/L (3.5-5.1)
[2018-06-16 13:06] LABS: ALBUMIN 2.9 g/dL (3.4-5.0); ALBUMIN/GLOBULIN RATIO 0.9 (1.0-1.7); TOTAL PROTEIN 6.3 g/dL (6.4-8.2)
--- NOTE | 2018-06-16 13:35 | PHYS DOC ---
Past Medical History Past Medical History: Anemia, Hypertension, Other Additional Past Medical Histor: KIDNEY FAILURE,OSTEOARTHRITIS Past Surgical History: Hip Replacement, Other Additional Past Surgical Histo: back surgery Alcohol Use: Occasionally Drug Use: None Adult General Chief Complaint Chief Complaint: OTHER COMPLAINTS [facility] HPI Patient is a 62 year old male who is referred in from the oncology clinic for hemoglobin of 4. Patient is a history of anemia he has had dark stools 3 months ago he says they're currently brown he was referred in for admission due to symptomatically anemia he is dyspnea on exertion. Apparently according to the oncology notes that he brought with him they're planning to do a bone marrow biopsy in the hospital. They're concerned about some sort of a bone marrow process. Patient says that he has no chest pain no abdominal pain no rectal bleeding over the last couple of days. Symptoms are severe and there slowly worsening with time he is generally weak Review of Systems Review of Systems Constitutional: Denies fever or chills [] Eyes: Denies change in visual acuity, redness, or eye pain [] HENT: Denies nasal congestion or sore throat [] Respiratory: Denies cough Cardiovascular: No additional information not addressed in HPI [] GI: Denies abdominal pain, nausea, vomiting, Musculoskeletal: Denies back pain or joint pain [] Integument: Denies rash or skin lesions [] All other systems were reviewed and found to be within normal limits, except as documented in this note. Allergies Allergies Allergies Coded Allergies Type Severity Reaction Last Updated Verified No Known Drug Allergies 05/21/18 No Physical Exam Physical Exam Constitutional: Well developed, well nourished, no acute distress, non-toxic appearance. [] HENT: Normocephalic, atraumatic, bilateral external ears normal, oropharynx moist, no oral exudates, nose normal. [] Eyes: PERRLA, EOMI, conjunctiva PALE, no discharge. [] Neck: Normal range of motion, no tenderness, supple, no stridor. [] Cardiovascular:Heart rate regular rhythm, no murmur [] Lungs & Thorax: Bilateral breath sounds clear to auscultation [] Abdomen: Bowel sounds normal, soft, no tenderness, no masses, no pulsatile masses. [] Skin: Warm, dry, no erythema, no rash. [] PALE Back: No tenderness, no CVA tenderness. [] Extremities: No tenderness, no cyanosis, no clubbing, ROM intact, no edema. [] Neurologic: Alert and oriented X 3, normal motor function, normal sensory function, no focal deficits noted. [] Psychologic: Affect normal, judgement normal, mood normal. [] Current Patient Data Vital Signs Vital Signs Date Time Temp Pulse Resp B/P (MAP) Pulse Ox O2 Delivery O2 Flow Rate FiO2 06/16/18 12:00 97.7 84 20 118/65 (82) 98 Room Air 97.7 Lab Values Laboratory Tests Test 06/16/18 12:37 White Blood Count 6.3 x10^3/uL (4.0-11.0) Red Blood Count 1.43 x10^6/uL (4.30-5.70) L Hemoglobin 4.4 g/dL (13.0-17.5) *L Hematocrit 12.2 % (39.0-53.0) *L Mean Corpuscular Volume 86 fL (79-100) Mean Corpuscular Hemoglobin 31 pg (25-35) Mean Corpuscular Hemoglobin Concent 36 g/dL (31-37) Red Cell Distribution Width 15.5 % (11.5-14.5) H Platelet Count 232 x10^3/uL (140-400) Neutrophils (%) (Auto) 78 % (31-73) H Lymphocytes (%) (Auto) 12 % (24-48) L Monocytes (%) (Auto) 9 % (0-9) Eosinophils (%) (Auto) 0 % (0-3) Basophils (%) (Auto) 1 % (0-3) Neutrophils # (Auto) 4.9 x10^3uL (1.8-7.7) Lymphocytes # (Auto) 0.8 x10^3/uL (1.0-4.8) L Monocytes # (Auto) 0.6 x10^3/uL (0.0-1.1) Eosinophils # (Auto) 0.0 x10^3/uL (0.0-0.7) Basophils # (Auto) 0.0 x10^3/uL (0.0-0.2) Prothrombin Time 15.3 SEC (11.7-14.0) H Prothrombin Time INR 1.3 (0.8-1.1) H Sodium Level 141 mmol/L (136-145) Potassium Level 3.9 mmol/L (3.5-5.1) Chloride Level 106 mmol/L (98-107) Carbon Dioxide Level 26 mmol/L (21-32) Anion Gap 9 (6-14) Blood Urea Nitrogen 18 mg/dL (8-26) Creatinine 1.0 mg/dL (0.7-1.3) Estimated GFR (Cockcroft-Gault) 91.6 BUN/Creatinine Ratio 18 (6-20) Glucose Level 112 mg/dL (70-99) H Calcium Level 8.5 mg/dL (8.5-10.1) Total Bilirubin 1.0 mg/dL (0.2-1.0) Aspartate Amino Transferase (AST) 17 U/L (15-37) Alanine Aminotransferase (ALT) 18 U/L (16-63) Alkaline Phosphatase 98 U/L (46-116) Troponin I Quantitative 0.051 ng/mL (0.000-0.055) Total Protein 6.3 g/dL (6.4-8.2) L Albumin 2.9 g/dL (3.4-5.0) L Albumin/Globulin Ratio 0.9 (1.0-1.7) L Laboratory Tests 06/16/18 12:37 Laboratory Tests 06/16/18 12:37 EKG EKG [] Interpretation Time: EKG shows a normal sinus rhythm with a rate of 82 there is low voltage intervals are showing a QTC of 482 nonspecific anterior changes no STEMI Radiology/Procedures Radiology/Procedures [] Course & Med Decision Making Course & Med Decision Making Pertinent Labs and Imaging studies reviewed. (See chart for details) []62-year-old male presenting with anemia with a hemoglobin in the 4 range. Patient did describe dyspnea on exertion no definite chest pain noted troponin is borderline however. Patient will be admitted to the service of Dr. Lacy for blood transfusions and then oncology evaluation. Patient denies any rectal bleeding at this time. Apparently he has had some dark stool 3 months ago but it stopped after he stopped his iron. Dragon Disclaimer Dragon Disclaimer This electronic medical record was generated, in whole or in part, using a voice recognition dictation system. Departure Departure Impression: Primary Impression: Anemia Disposition: ADMITTED INPATIENT Admitting Physician: Neil Felton Referrals: ERASMO RAMIREZ MD (PCP) DELIO AGUILLON MD Jun 16, 2018 13:35
--- NOTE | 2018-06-16 13:47 | EKG ---
[facility] [address] [place] [address] Test Date: 2018-06-16 Test Time: 12:17:12 Pat Name: KESHAV YEE Department: Room: 526 1 Gender: M Hand Clipper: : 1955 Requested By: DELIO AGUILLON Order Number: [id number] Reading MD: Matthew Saldivar MD Measurements Intervals [place] Rate: 82 P: 48 MN: 146 QRS: -38 QRSD: 88 T: 54 QT: 410 QTc: 482 Interpretive Statements SINUS RHYTHM ABNORMAL LEFT AXIS DEVIATION LOW LIMB LEAD VOLTAGE NON-SPECIFIC ST/T CHANGES Electronically Signed On 06-18-2018 12:20:23 CDT by Matthew Saldivar MD
--- NOTE | 2018-06-16 21:49 | HP ---
ADMIT DATE: 06/16/2018 CHIEF COMPLAINT: Anemia. HISTORY OF PRESENT ILLNESS: The patient is a pleasant middle-aged male who has chronic anemia. He has been seen by Oncology and in fact they are considering doing a bone marrow biopsy tomorrow. Today's hemoglobin is 4. He was told to go to the ER for admission. We have now examined the patient. He is going to get transfusions. He rates his symptoms at 7/10. He has associated shortness of breath. He tried increasing his home meds, but that was not working. We are going to admit the patient and consult Oncology and transfuse him. PAST MEDICAL HISTORY: Chronic anemia and he is being evaluated for that by Hematology/Oncology, hypertension, kidney failure, arthritis, hip replacement, back surgery. ALLERGIES: None. FAMILY HISTORY: Coronary artery disease. SOCIAL HISTORY: He does not drink, smoke or take drugs. MEDICATIONS: Reviewed, please refer to the MRAD. REVIEW OF SYSTEMS: GENERAL: No history of weight change, weakness or fevers. SKIN: No bruising, hair changes or rashes. EYES: No blurred, double or loss of vision. NOSE AND THROAT: No history of nosebleeds, hoarseness or sore throat. HEART: No history of palpitations, chest pain or shortness of breath on exertion. LUNGS: He complains of shortness of breath. GASTROINTESTINAL: Denies changes in appetite, nausea, vomiting, diarrhea or constipation. GENITOURINARY: No history of frequency, urgency, hesitancy or nocturia. NEUROLOGIC: Denies history of numbness, tingling, tremor or weakness. PSYCHIATRIC: No history of panic, anxiety or depression. ENDOCRINE: No history of heat or cold intolerance, polyuria or polydipsia. EXTREMITIES: Denies muscle weakness, joint pain, pain on walking or stiffness. PHYSICAL EXAMINATION: VITAL SIGNS: Temperature afebrile, pulse 90, respirations 18, blood pressure 120/71. GENERAL: He is alert, cooperative, watching TV. HEART: Normal S1, S2. LUNGS: Clear. ABDOMEN: Soft. EXTREMITIES: No edema. SKIN: No rashes. ENDOCRINE: No thyromegaly. LYMPHATICS: No cervical nodes. HEMATOPOIETIC: No bruising. LABORATORY DATA: Electrolytes are normal today. Hemoglobin is 4.4. ASSESSMENT AND PLAN: Severe chronic anemia, suspect he may have a bone marrow process. The patient is being admitted. We will transfuse him and consult Hematology/Oncology. I suspect he will get a bone marrow biopsy tomorrow. Frequent labs, home meds, IV fluids, PT, OT. PROGNOSIS: Guarded. HEAVEN APPIAH DO DR: ANDRÉS/ollie JOB#: [id number] / [id number]
[2018-06-17] VITALS (20 sets, daily range): BP systolic 107–133; BP diastolic 65–81
[2018-06-17 04:21] LABS: BASO % 0 % (0-3); EOS % 0 % (0-3); LYMPH % 11 % (24-48); MEAN CORPUSCULAR HEMOGLOBIN 31 pg (25-35); MEAN CORPUSCULAR HGB CONC 37 g/dL (31-37); MEAN CORPUSCULAR VOLUME 86 fL (79-100); MONO # 0.6 x10^3/uL (0.0-1.1); MONO % 6 % (0-9); NEUT # 7.7 x10^3uL (1.8-7.7); NEUT % 82 % (31-73); PLATELET COUNT 206 x10^3/uL (140-400); RED BLOOD COUNT 1.69 x10^6/uL (4.30-5.70); RED CELL DISTRIBUTION WIDTH 15.6 % (11.5-14.5); WHITE BLOOD COUNT 9.4 x10^3/uL (4.0-11.0)
[2018-06-17 04:37] LABS: HEMATOCRIT 14.5 % (39.0-53.0); HEMOGLOBIN 5.3 g/dL (13.0-17.5)
--- NOTE | 2018-06-17 09:24 | PDOC2 ---
CONSULT Date of Consult Date of Consult DATE: 06/17/18 TIME: 09:18 Reason for consultation: Anemia Consult: Hematology oncology, Dr. 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 He's receiving his third transfusion for a hemoglobin of about 4.7 yesterday. Up to 5.3 after initial transfusion. Dyspnea much better. Past medical history: Acute renal failure in the past Anemia Back pain Hypertension Osteoarthritis Past surgical history: Left hip arthroplasty September 2003 Left hip removal of hardware with revision total hip arthroplasty 18 March 2018 Back surgery 3 Allergies: No known drug allergies Medications: See attached list Social history: Quit tobacco in 2003, quit alcohol at 39 years old, quit cocaine at 39 years old, he is a welder/fitter, , one daughter Family history: Unknown bone marrow disorders in his family Review of systems: He had dyspnea which is improved after transfusion, lower extremity edema, left hip pain improving postop, walks with a cane, otherwise 10 point review of systems is negative Physical exam: Vitals reviewed Gen.: Well-nourished and well-developed in no acute distress HEENT: mucous membranes moist, head normocephalic atraumatic Neck: Supple, no lymphadenopathy Lymph nodes: No palpable lymphadenopathy neck or axilla Lungs: Breathing comfortably, no evidence of respiratory distress Heart: Regular rate and rhythm Abdomen: Soft, nontender, nondistended Extremities: No cyanosis, BLE edema Skin: No obvious rashes or skin breakdown Neuro: Alert and oriented 3 Psych: pleasant mood and affect Lab reviewed: White count 9.4, hemoglobin 5.3, platelets 206 Rads reviewed: none this admission Case discussed with: Patient, student nurse, interventional radiology, and records reviewed in [facility] including labs and radiology as needed. Assessment and Plan: He is a 62-year-old male with a history of left hip arthroplasty in March, he has had continued anemia afterwards, there was a hematoma at the left hip which has improved, though anemia keeps recurring with a hemoglobin in the 4.7 range yesterday, on his third transfusion now, concern for red cell aplasia. Anemia: Transfuse to hemoglobin greater than 7 Concern for red cell aplasia: We'll order bone marrow biopsy and parvo titers Hip pain: Improving postoperatively Disposition: Potentially after bone marrow biopsy, can follow up as outpatient as needed Thank you kindly for this consultation, and please do not hesitate to call with any further questions. Past Medical History Cardiovascular: HTN Pulmonary: Bronchitis GI: No pertinent hx Heme/Onc: No pertinent hx Hepatobiliary: No pertinent hx Musculoskeletal: Osteoarthritis Renal/: No pertinent hx Endocrine: No pertinent hx Past Surgical History Past Surgical History: Total hip replacement Family History Family History: No Significant Social History ALCOHOL: none Drugs: None Lives: with Family Current Medications Current Medications Active Scripts Active Reported No Known Medications Prior To Admisstion (Info) Each 1 Each Allergies Allergies: Coded Allergies: No Known Drug Allergies (Unverified , 05/21/18) Vitals VITALS Vital Signs Date Time Temp Pulse Resp B/P (MAP) Pulse Ox O2 Delivery O2 Flow Rate FiO2 06/17/18 09:05 98.4 90 20 111/69 (83) 98 Room Air 98.4 Labs Labs Laboratory Tests Test 06/16/18 12:37 06/17/18 03:45 White Blood Count 6.3 x10^3/uL (4.0-11.0) 9.4 x10^3/uL (4.0-11.0) Red Blood Count 1.43 x10^6/uL (4.30-5.70) 1.69 x10^6/uL (4.30-5.70) Hemoglobin 4.4 g/dL (13.0-17.5) 5.3 g/dL (13.0-17.5) Hematocrit 12.2 % (39.0-53.0) 14.5 % (39.0-53.0) Mean Corpuscular Volume 86 fL (79-100) 86 fL (79-100) Mean Corpuscular Hemoglobin 31 pg (25-35) 31 pg (25-35) Mean Corpuscular Hemoglobin Concent 36 g/dL (31-37) 37 g/dL (31-37) Red Cell Distribution Width 15.5 % (11.5-14.5) 15.6 % (11.5-14.5) Platelet Count 232 x10^3/uL (140-400) 206 x10^3/uL (140-400) Neutrophils (%) (Auto) 78 % (31-73) 82 % (31-73) Lymphocytes (%) (Auto) 12 % (24-48) 11 % (24-48) Monocytes (%) (Auto) 9 % (0-9) 6 % (0-9) Eosinophils (%) (Auto) 0 % (0-3) 0 % (0-3) Basophils (%) (Auto) 1 % (0-3) 0 % (0-3) Neutrophils # (Auto) 4.9 x10^3uL (1.8-7.7) 7.7 x10^3uL (1.8-7.7) Lymphocytes # (Auto) 0.8 x10^3/uL (1.0-4.8) 1.0 x10^3/uL (1.0-4.8) Monocytes # (Auto) 0.6 x10^3/uL (0.0-1.1) 0.6 x10^3/uL (0.0-1.1) Eosinophils # (Auto) 0.0 x10^3/uL (0.0-0.7) 0.0 x10^3/uL (0.0-0.7) Basophils # (Auto) 0.0 x10^3/uL (0.0-0.2) 0.0 x10^3/uL (0.0-0.2) Prothrombin Time 15.3 SEC (11.7-14.0) Prothromb Time International Ratio 1.3 (0.8-1.1) Sodium Level 141 mmol/L (136-145) Potassium Level 3.9 mmol/L (3.5-5.1) Chloride Level 106 mmol/L (98-107) Carbon Dioxide Level 26 mmol/L (21-32) Anion Gap 9 (6-14) Blood Urea Nitrogen 18 mg/dL (8-26) Creatinine 1.0 mg/dL (0.7-1.3) Estimated GFR (Cockcroft-Gault) 91.6 BUN/Creatinine Ratio 18 (6-20) Glucose Level 112 mg/dL (70-99) Calcium Level 8.5 mg/dL (8.5-10.1) Total Bilirubin 1.0 mg/dL (0.2-1.0) Aspartate Amino Transf (AST/SGOT) 17 U/L (15-37) Alanine Aminotransferase (ALT/SGPT) 18 U/L (16-63) Alkaline Phosphatase 98 U/L (46-116) Troponin I Quantitative 0.051 ng/mL (0.000-0.055) Total Protein 6.3 g/dL (6.4-8.2) Albumin 2.9 g/dL (3.4-5.0) Albumin/Globulin Ratio 0.9 (1.0-1.7) Laboratory Tests Test 06/16/18 12:37 06/17/18 03:45 White Blood Count 6.3 x10^3/uL (4.0-11.0) 9.4 x10^3/uL (4.0-11.0) Red Blood Count 1.43 x10^6/uL (4.30-5.70) 1.69 x10^6/uL (4.30-5.70) Hemoglobin 4.4 g/dL (13.0-17.5) 5.3 g/dL (13.0-17.5) Hematocrit 12.2 % (39.0-53.0) 14.5 % (39.0-53.0) Mean Corpuscular Volume 86 fL (79-100) 86 fL (79-100) Mean Corpuscular Hemoglobin 31 pg (25-35) 31 pg (25-35) Mean Corpuscular Hemoglobin Concent 36 g/dL (31-37) 37 g/dL (31-37) Red Cell Distribution Width 15.5 % (11.5-14.5) 15.6 % (11.5-14.5) Platelet Count 232 x10^3/uL (140-400) 206 x10^3/uL (140-400) Neutrophils (%) (Auto) 78 % (31-73) 82 % (31-73) Lymphocytes (%) (Auto) 12 % (24-48) 11 % (24-48) Monocytes (%) (Auto) 9 % (0-9) 6 % (0-9) Eosinophils (%) (Auto) 0 % (0-3) 0 % (0-3) Basophils (%) (Auto) 1 % (0-3) 0 % (0-3) Neutrophils # (Auto) 4.9 x10^3uL (1.8-7.7) 7.7 x10^3uL (1.8-7.7) Lymphocytes # (Auto) 0.8 x10^3/uL (1.0-4.8) 1.0 x10^3/uL (1.0-4.8) Monocytes # (Auto) 0.6 x10^3/uL (0.0-1.1) 0.6 x10^3/uL (0.0-1.1) Eosinophils # (Auto) 0.0 x10^3/uL (0.0-0.7) 0.0 x10^3/uL (0.0-0.7) Basophils # (Auto) 0.0 x10^3/uL (0.0-0.2) 0.0 x10^3/uL (0.0-0.2) Prothrombin Time 15.3 SEC (11.7-14.0) Prothromb Time International Ratio 1.3 (0.8-1.1) Sodium Level 141 mmol/L (136-145) Potassium Level 3.9 mmol/L (3.5-5.1) Chloride Level 106 mmol/L (98-107) Carbon Dioxide Level 26 mmol/L (21-32) Anion Gap 9 (6-14) Blood Urea Nitrogen 18 mg/dL (8-26) Creatinine 1.0 mg/dL (0.7-1.3) Estimated GFR (Cockcroft-Gault) 91.6 BUN/Creatinine Ratio 18 (6-20) Glucose Level 112 mg/dL (70-99) Calcium Level 8.5 mg/dL (8.5-10.1) Total Bilirubin 1.0 mg/dL (0.2-1.0) Aspartate Amino Transf (AST/SGOT) 17 U/L (15-37) Alanine Aminotransferase (ALT/SGPT) 18 U/L (16-63) Alkaline Phosphatase 98 U/L (46-116) Troponin I Quantitative 0.051 ng/mL (0.000-0.055) Total Protein 6.3 g/dL (6.4-8.2) Albumin 2.9 g/dL (3.4-5.0) Albumin/Globulin Ratio 0.9 (1.0-1.7) MARV CHISHOLM MD Jun 17, 2018 09:24
--- NOTE | 2018-06-17 10:47 | PDOC ---
PROGRESS NOTES History of Present Illness History of Present Illness ASSESSMENT AND PLAN: Severe chronic anemia, suspect he may have a bone marrow process. SUCH APLASIA admitted. transfuse consult Hematology/Oncology. Frequent labs, home meds, IV fluids, PT, OT. RETIC COUNT BM BX Vitals Vitals Vital Signs Date Time Temp Pulse Resp B/P (MAP) Pulse Ox O2 Delivery O2 Flow Rate FiO2 06/17/18 10:26 98.0 88 16 111/68 (82) 98 Room Air 98.0 Physical Exam General: Oriented X3, Cooperative, No acute distress Heart: Regular rate, Normal S1 Lungs: Clear Abdomen: Normal bowel sounds, Soft, No hepatosplenomegaly Extremities: No cyanosis Labs LABS Laboratory Tests Test 06/16/18 12:37 06/17/18 03:45 White Blood Count 6.3 x10^3/uL (4.0-11.0) 9.4 x10^3/uL (4.0-11.0) Red Blood Count 1.43 x10^6/uL (4.30-5.70) 1.69 x10^6/uL (4.30-5.70) Hemoglobin 4.4 g/dL (13.0-17.5) 5.3 g/dL (13.0-17.5) Hematocrit 12.2 % (39.0-53.0) 14.5 % (39.0-53.0) Mean Corpuscular Volume 86 fL (79-100) 86 fL (79-100) Mean Corpuscular Hemoglobin 31 pg (25-35) 31 pg (25-35) Mean Corpuscular Hemoglobin Concent 36 g/dL (31-37) 37 g/dL (31-37) Red Cell Distribution Width 15.5 % (11.5-14.5) 15.6 % (11.5-14.5) Platelet Count 232 x10^3/uL (140-400) 206 x10^3/uL (140-400) Neutrophils (%) (Auto) 78 % (31-73) 82 % (31-73) Lymphocytes (%) (Auto) 12 % (24-48) 11 % (24-48) Monocytes (%) (Auto) 9 % (0-9) 6 % (0-9) Eosinophils (%) (Auto) 0 % (0-3) 0 % (0-3) Basophils (%) (Auto) 1 % (0-3) 0 % (0-3) Neutrophils # (Auto) 4.9 x10^3uL (1.8-7.7) 7.7 x10^3uL (1.8-7.7) Lymphocytes # (Auto) 0.8 x10^3/uL (1.0-4.8) 1.0 x10^3/uL (1.0-4.8) Monocytes # (Auto) 0.6 x10^3/uL (0.0-1.1) 0.6 x10^3/uL (0.0-1.1) Eosinophils # (Auto) 0.0 x10^3/uL (0.0-0.7) 0.0 x10^3/uL (0.0-0.7) Basophils # (Auto) 0.0 x10^3/uL (0.0-0.2) 0.0 x10^3/uL (0.0-0.2) Prothrombin Time 15.3 SEC (11.7-14.0) Prothromb Time International Ratio 1.3 (0.8-1.1) Sodium Level 141 mmol/L (136-145) Potassium Level 3.9 mmol/L (3.5-5.1) Chloride Level 106 mmol/L (98-107) Carbon Dioxide Level 26 mmol/L (21-32) Anion Gap 9 (6-14) Blood Urea Nitrogen 18 mg/dL (8-26) Creatinine 1.0 mg/dL (0.7-1.3) Estimated GFR (Cockcroft-Gault) 91.6 BUN/Creatinine Ratio 18 (6-20) Glucose Level 112 mg/dL (70-99) Calcium Level 8.5 mg/dL (8.5-10.1) Total Bilirubin 1.0 mg/dL (0.2-1.0) Aspartate Amino Transf (AST/SGOT) 17 U/L (15-37) Alanine Aminotransferase (ALT/SGPT) 18 U/L (16-63) Alkaline Phosphatase 98 U/L (46-116) Troponin I Quantitative 0.051 ng/mL (0.000-0.055) Total Protein 6.3 g/dL (6.4-8.2) Albumin 2.9 g/dL (3.4-5.0) Albumin/Globulin Ratio 0.9 (1.0-1.7) Comment Review of Relevant I have reviewed the following items lyubov (where applicable) has been applied. Labs Laboratory Tests Test 06/16/18 12:37 06/17/18 03:45 White Blood Count 6.3 x10^3/uL (4.0-11.0) 9.4 x10^3/uL (4.0-11.0) Red Blood Count 1.43 x10^6/uL (4.30-5.70) 1.69 x10^6/uL (4.30-5.70) Hemoglobin 4.4 g/dL (13.0-17.5) 5.3 g/dL (13.0-17.5) Hematocrit 12.2 % (39.0-53.0) 14.5 % (39.0-53.0) Mean Corpuscular Volume 86 fL (79-100) 86 fL (79-100) Mean Corpuscular Hemoglobin 31 pg (25-35) 31 pg (25-35) Mean Corpuscular Hemoglobin Concent 36 g/dL (31-37) 37 g/dL (31-37) Red Cell Distribution Width 15.5 % (11.5-14.5) 15.6 % (11.5-14.5) Platelet Count 232 x10^3/uL (140-400) 206 x10^3/uL (140-400) Neutrophils (%) (Auto) 78 % (31-73) 82 % (31-73) Lymphocytes (%) (Auto) 12 % (24-48) 11 % (24-48) Monocytes (%) (Auto) 9 % (0-9) 6 % (0-9) Eosinophils (%) (Auto) 0 % (0-3) 0 % (0-3) Basophils (%) (Auto) 1 % (0-3) 0 % (0-3) Neutrophils # (Auto) 4.9 x10^3uL (1.8-7.7) 7.7 x10^3uL (1.8-7.7) Lymphocytes # (Auto) 0.8 x10^3/uL (1.0-4.8) 1.0 x10^3/uL (1.0-4.8) Monocytes # (Auto) 0.6 x10^3/uL (0.0-1.1) 0.6 x10^3/uL (0.0-1.1) Eosinophils # (Auto) 0.0 x10^3/uL (0.0-0.7) 0.0 x10^3/uL (0.0-0.7) Basophils # (Auto) 0.0 x10^3/uL (0.0-0.2) 0.0 x10^3/uL (0.0-0.2) Prothrombin Time 15.3 SEC (11.7-14.0) Prothromb Time International Ratio 1.3 (0.8-1.1) Sodium Level 141 mmol/L (136-145) Potassium Level 3.9 mmol/L (3.5-5.1) Chloride Level 106 mmol/L (98-107) Carbon Dioxide Level 26 mmol/L (21-32) Anion Gap 9 (6-14) Blood Urea Nitrogen 18 mg/dL (8-26) Creatinine 1.0 mg/dL (0.7-1.3) Estimated GFR (Cockcroft-Gault) 91.6 BUN/Creatinine Ratio 18 (6-20) Glucose Level 112 mg/dL (70-99) Calcium Level 8.5 mg/dL (8.5-10.1) Total Bilirubin 1.0 mg/dL (0.2-1.0) Aspartate Amino Transf (AST/SGOT) 17 U/L (15-37) Alanine Aminotransferase (ALT/SGPT) 18 U/L (16-63) Alkaline Phosphatase 98 U/L (46-116) Troponin I Quantitative 0.051 ng/mL (0.000-0.055) Total Protein 6.3 g/dL (6.4-8.2) Albumin 2.9 g/dL (3.4-5.0) Albumin/Globulin Ratio 0.9 (1.0-1.7) Laboratory Tests Test 06/16/18 12:37 06/17/18 03:45 White Blood Count 6.3 x10^3/uL (4.0-11.0) 9.4 x10^3/uL (4.0-11.0) Red Blood Count 1.43 x10^6/uL (4.30-5.70) 1.69 x10^6/uL (4.30-5.70) Hemoglobin 4.4 g/dL (13.0-17.5) 5.3 g/dL (13.0-17.5) Hematocrit 12.2 % (39.0-53.0) 14.5 % (39.0-53.0) Mean Corpuscular Volume 86 fL (79-100) 86 fL (79-100) Mean Corpuscular Hemoglobin 31 pg (25-35) 31 pg (25-35) Mean Corpuscular Hemoglobin Concent 36 g/dL (31-37) 37 g/dL (31-37) Red Cell Distribution Width 15.5 % (11.5-14.5) 15.6 % (11.5-14.5) Platelet Count 232 x10^3/uL (140-400) 206 x10^3/uL (140-400) Neutrophils (%) (Auto) 78 % (31-73) 82 % (31-73) Lymphocytes (%) (Auto) 12 % (24-48) 11 % (24-48) Monocytes (%) (Auto) 9 % (0-9) 6 % (0-9) Eosinophils (%) (Auto) 0 % (0-3) 0 % (0-3) Basophils (%) (Auto) 1 % (0-3) 0 % (0-3) Neutrophils # (Auto) 4.9 x10^3uL (1.8-7.7) 7.7 x10^3uL (1.8-7.7) Lymphocytes # (Auto) 0.8 x10^3/uL (1.0-4.8) 1.0 x10^3/uL (1.0-4.8) Monocytes # (Auto) 0.6 x10^3/uL (0.0-1.1) 0.6 x10^3/uL (0.0-1.1) Eosinophils # (Auto) 0.0 x10^3/uL (0.0-0.7) 0.0 x10^3/uL (0.0-0.7) Basophils # (Auto) 0.0 x10^3/uL (0.0-0.2) 0.0 x10^3/uL (0.0-0.2) Prothrombin Time 15.3 SEC (11.7-14.0) Prothromb Time International Ratio 1.3 (0.8-1.1) Sodium Level 141 mmol/L (136-145) Potassium Level 3.9 mmol/L (3.5-5.1) Chloride Level 106 mmol/L (98-107) Carbon Dioxide Level 26 mmol/L (21-32) Anion Gap 9 (6-14) Blood Urea Nitrogen 18 mg/dL (8-26) Creatinine 1.0 mg/dL (0.7-1.3) Estimated GFR (Cockcroft-Gault) 91.6 BUN/Creatinine Ratio 18 (6-20) Glucose Level 112 mg/dL (70-99) Calcium Level 8.5 mg/dL (8.5-10.1) Total Bilirubin 1.0 mg/dL (0.2-1.0) Aspartate Amino Transf (AST/SGOT) 17 U/L (15-37) Alanine Aminotransferase (ALT/SGPT) 18 U/L (16-63) Alkaline Phosphatase 98 U/L (46-116) Troponin I Quantitative 0.051 ng/mL (0.000-0.055) Total Protein 6.3 g/dL (6.4-8.2) Albumin 2.9 g/dL (3.4-5.0) Albumin/Globulin Ratio 0.9 (1.0-1.7) Medications Active Scripts Active Reported No Known Medications Prior To Admisstion (Info) Each 1 Each Vitals/I & O Vital Sign - Last 24 Hours 06/16/18 06/16/18 06/16/18 06/16/18 12:00 12:36 13:02 13:32 Temp 97.7 97.7 Pulse 84 84 80 Resp 20 15 11 13 B/P (MAP) 118/65 (82) 117/73 (88) 115/70 (85) 118/65 (82) Pulse Ox 98 98 93 93 O2 Delivery Room Air Room Air Room Air Room Air 06/16/18 06/16/18 06/16/18 06/16/18 13:45 14:10 15:06 15:15 Temp 97.5 97.9 97.5 97.9 Pulse 84 83 83 Resp 13 18 20 B/P (MAP) 128/66 (86) 118/68 (85) 118/68 Pulse Ox 96 100 O2 Delivery Room Air Room Air Room Air 06/16/18 06/16/18 06/16/18 06/16/18 15:26 16:10 17:10 17:55 Temp 97.8 97.9 97.8 97.9 97.8 97.9 97.8 97.9 Pulse 83 83 84 85 Resp 20 20 20 20 B/P (MAP) 109/69 113/71 113/73 109/68 06/16/18 06/16/18 06/16/18 06/16/18 18:55 19:26 19:30 19:40 Temp 98.1 97.8 98.0 98.1 97.8 98.0 Pulse 87 85 84 Resp 20 16 16 B/P (MAP) 107/70 (82) 119/71 120/71 Pulse Ox 98 O2 Delivery Room Air Room Air 06/16/18 06/16/18 06/16/18 06/17/18 20:40 21:43 22:46 03:12 Temp 98.4 98.0 97.9 98.5 98.4 98.0 97.9 98.5 Pulse 85 85 93 89 Resp 14 16 15 20 B/P (MAP) 125/77 121/75 138/75 109/69 (82) Pulse Ox 98 O2 Delivery Room Air 06/17/18 06/17/18 06/17/18 06/17/18 07:00 08:00 08:30 08:52 Temp 98.1 98.4 98.5 98.1 98.4 98.5 Pulse 91 90 90 Resp 17 20 20 B/P (MAP) 118/72 (87) 111/69 107/65 Pulse Ox 96 O2 Delivery Room Air Room Air 06/17/18 06/17/18 06/17/18 06/17/18 09:05 09:12 09:32 10:25 Temp 98.4 98.4 98.0 98.4 98.4 98.0 Pulse 90 88 88 Resp 20 20 16 B/P (MAP) 111/69 (83) 112/66 111/68 Pulse Ox 98 O2 Delivery Room Air Room Air 10/9/18 10:26 Temp 98.0 98.0 Pulse 88 Resp 16 B/P (MAP) 111/68 (82) Pulse Ox 98 O2 Delivery Room Air Intake and Output 06/16/18 06/16/18 06/17/18 15:00 23:00 07:00 Intake Total 1173 ml Balance 1173 ml OLMAN CALDERON MD Jun 17, 2018 10:47
[2018-06-18] VITALS (20 sets, daily range): BP systolic 98–132; BP diastolic 60–82
--- NOTE | 2018-06-18 02:40 | RAD ---
Chest PA and lateral: Reason for examination: Anemia. History of hypertension and asthma. The heart size is normal. Mediastinum is unremarkable. Lung sharma are clear. No acute bony abnormalities are seen. Impression: No acute cardiopulmonary disease. Electronically signed by: Monisha Tay MD (06/18/2018 2:36 AM) [facility] [email or web address]
[2018-06-18 06:25] LABS: HEMOGLOBIN 7.2 g/dL (13.0-17.5); RED BLOOD COUNT 2.4 x10^6/uL (4.30-5.70); RED CELL DISTRIBUTION WIDTH 15.7 % (11.5-14.5); WHITE BLOOD COUNT 6.4 x10^3/uL (4.0-11.0)
[2018-06-18 06:29] LABS: HEMATOCRIT 20.5 % (39.0-53.0)
[2018-06-18] MEDS ORDERED: ACETAMINOPHEN 325 MG TABLET. PO PRN (08:15)
--- NOTE | 2018-06-18 08:41 | PDOC ---
PROGRESS NOTES History of Present Illness History of Present Illness ASSESSMENT AND PLAN: Severe chronic anemia, suspect he may have a bone marrow process. SUCH APLASIA admitted. transfuse consult Hematology/Oncology. Frequent labs, home meds, IV fluids, PT, OT. RETIC COUNT BM BX TODAY Vitals Vitals Vital Signs Date Time Temp Pulse Resp B/P (MAP) Pulse Ox O2 Delivery O2 Flow Rate FiO2 06/18/18 02:53 100.4 106 18 128/82 (97) 96 Room Air 100.4 Physical Exam General: Oriented X3, Cooperative, No acute distress Heart: Regular rate, Normal S1 Lungs: Clear Abdomen: Normal bowel sounds, Soft, No hepatosplenomegaly Extremities: No clubbing, No cyanosis Labs LABS Laboratory Tests Test 06/18/18 04:48 White Blood Count 6.4 x10^3/uL (4.0-11.0) Red Blood Count 2.40 x10^6/uL (4.30-5.70) Hemoglobin 7.2 g/dL (13.0-17.5) Hematocrit 20.5 % (39.0-53.0) Mean Corpuscular Volume 86 fL (79-100) Mean Corpuscular Hemoglobin 30 pg (25-35) Mean Corpuscular Hemoglobin Concent 35 g/dL (31-37) Red Cell Distribution Width 15.7 % (11.5-14.5) Platelet Count 221 x10^3/uL (140-400) Comment Review of Relevant I have reviewed the following items lyubov (where applicable) has been applied. Labs Laboratory Tests Test 06/16/18 12:37 06/17/18 03:40 06/17/18 03:45 06/18/18 04:48 White Blood Count 6.3 x10^3/uL (4.0-11.0) 9.4 x10^3/uL (4.0-11.0) 6.4 x10^3/uL (4.0-11.0) Red Blood Count 1.43 x10^6/uL (4.30-5.70) 1.69 x10^6/uL (4.30-5.70) 2.40 x10^6/uL (4.30-5.70) Hemoglobin 4.4 g/dL (13.0-17.5) 5.3 g/dL (13.0-17.5) 7.2 g/dL (13.0-17.5) Hematocrit 12.2 % (39.0-53.0) 14.5 % (39.0-53.0) 20.5 % (39.0-53.0) Mean Corpuscular Volume 86 fL (79-100) 86 fL (79-100) 86 fL (79-100) Mean Corpuscular Hemoglobin 31 pg (25-35) 31 pg (25-35) 30 pg (25-35) Mean Corpuscular Hemoglobin Concent 36 g/dL (31-37) 37 g/dL (31-37) 35 g/dL (31-37) Red Cell Distribution Width 15.5 % (11.5-14.5) 15.6 % (11.5-14.5) 15.7 % (11.5-14.5) Platelet Count 232 x10^3/uL (140-400) 206 x10^3/uL (140-400) 221 x10^3/uL (140-400) Neutrophils (%) (Auto) 78 % (31-73) 82 % (31-73) Lymphocytes (%) (Auto) 12 % (24-48) 11 % (24-48) Monocytes (%) (Auto) 9 % (0-9) 6 % (0-9) Eosinophils (%) (Auto) 0 % (0-3) 0 % (0-3) Basophils (%) (Auto) 1 % (0-3) 0 % (0-3) Neutrophils # (Auto) 4.9 x10^3uL (1.8-7.7) 7.7 x10^3uL (1.8-7.7) Lymphocytes # (Auto) 0.8 x10^3/uL (1.0-4.8) 1.0 x10^3/uL (1.0-4.8) Monocytes # (Auto) 0.6 x10^3/uL (0.0-1.1) 0.6 x10^3/uL (0.0-1.1) Eosinophils # (Auto) 0.0 x10^3/uL (0.0-0.7) 0.0 x10^3/uL (0.0-0.7) Basophils # (Auto) 0.0 x10^3/uL (0.0-0.2) 0.0 x10^3/uL (0.0-0.2) Prothrombin Time 15.3 SEC (11.7-14.0) Prothromb Time International Ratio 1.3 (0.8-1.1) Sodium Level 141 mmol/L (136-145) Potassium Level 3.9 mmol/L (3.5-5.1) Chloride Level 106 mmol/L (98-107) Carbon Dioxide Level 26 mmol/L (21-32) Anion Gap 9 (6-14) Blood Urea Nitrogen 18 mg/dL (8-26) Creatinine 1.0 mg/dL (0.7-1.3) Estimated GFR (Cockcroft-Gault) 91.6 BUN/Creatinine Ratio 18 (6-20) Glucose Level 112 mg/dL (70-99) Calcium Level 8.5 mg/dL (8.5-10.1) Total Bilirubin 1.0 mg/dL (0.2-1.0) Aspartate Amino Transf (AST/SGOT) 17 U/L (15-37) Alanine Aminotransferase (ALT/SGPT) 18 U/L (16-63) Alkaline Phosphatase 98 U/L (46-116) Troponin I Quantitative 0.051 ng/mL (0.000-0.055) Total Protein 6.3 g/dL (6.4-8.2) Albumin 2.9 g/dL (3.4-5.0) Albumin/Globulin Ratio 0.9 (1.0-1.7) Reticulocyte Count (auto) 1.0 % (0.5-2.5) Laboratory Tests Test 06/18/18 04:48 White Blood Count 6.4 x10^3/uL (4.0-11.0) Red Blood Count 2.40 x10^6/uL (4.30-5.70) Hemoglobin 7.2 g/dL (13.0-17.5) Hematocrit 20.5 % (39.0-53.0) Mean Corpuscular Volume 86 fL (79-100) Mean Corpuscular Hemoglobin 30 pg (25-35) Mean Corpuscular Hemoglobin Concent 35 g/dL (31-37) Red Cell Distribution Width 15.7 % (11.5-14.5) Platelet Count 221 x10^3/uL (140-400) Medications Current Medications Acetaminophen (Tylenol) 650 mg PRN Q6HRS PRN PO MILD PAIN / TEMP Last administered on 06/18/18at 08:33; Start 06/18/18 at 08:15 Active Scripts Active Reported No Known Medications Prior To Admisstion (Info) Each 1 Each Vitals/I & O Vital Sign - Last 24 Hours 06/17/18 06/17/18 06/17/18 06/17/18 08:52 09:05 09:12 09:32 Temp 98.5 98.4 98.4 98.5 98.4 98.4 Pulse 90 90 88 Resp 20 20 20 B/P (MAP) 107/65 111/69 (83) 112/66 Pulse Ox 98 O2 Delivery Room Air Room Air 06/17/18 06/17/18 06/17/18 06/17/18 10:25 10:26 11:26 11:34 Temp 98.0 98.0 98.2 98.0 98.0 98.0 98.2 98.0 Pulse 88 88 87 85 Resp 16 16 20 20 B/P (MAP) 111/68 111/68 (82) 114/71 115/72 Pulse Ox 98 O2 Delivery Room Air 06/17/18 06/17/18 06/17/18 06/17/18 12:35 14:18 14:34 14:35 Temp 98.3 98.4 98.7 98.7 98.3 98.4 98.7 98.7 Pulse 88 93 91 91 Resp 20 20 20 20 B/P (MAP) 121/79 (93) 131/74 110/66 110/66 (81) Pulse Ox 99 96 O2 Delivery Room Air Room Air 06/17/18 06/17/18 06/17/18 06/17/18 15:20 16:20 17:12 18:14 Temp 98.7 98.6 99.9 99.2 98.7 98.6 99.9 99.2 Pulse 94 92 93 98 Resp 20 20 20 20 B/P (MAP) 130/75 123/76 129/75 133/81 (98) Pulse Ox 99 O2 Delivery Room Air 06/17/18 06/17/18 06/17/18 06/18/18 19:00 19:55 23:00 02:53 Temp 99.2 99.7 100.4 99.2 99.7 100.4 Pulse 99 102 106 Resp 18 B/P (MAP) 124/77 (93) 122/81 (95) 128/82 (97) Pulse Ox 97 95 96 O2 Delivery Room Air Room Air Room Air Room Air Intake and Output 06/17/18 06/17/18 06/18/18 15:00 23:00 07:00 Intake Total 1191 ml 1330 ml 380 ml Output Total 175 ml 300 ml Balance 1016 ml 1330 ml 80 ml OLMAN CALDERON MD Jun 18, 2018 08:41
[2018-06-18] MEDS ORDERED: MIDAZOLAM HCL/PF 2 MG/2 ML VIAL. ONE (09:01)
[2018-06-18] MEDS ORDERED: fentaNYL PF VIAL 100 MCG/2 ML VIAL ONE (09:01)
--- NOTE | 2018-06-18 09:09 | PDOC ---
MODERATE SEDATION ASSESSMENT RISKS/ALTERNATIVES Risks/Alternatives Risks and alternatives of this type of sedation and procedure discussed with: RISK/ALTERNATIVES: Patient H & P ON CHART H & P H & P on chart and reviewed for co-morbid conditions and appropriate labs. H&P ON CHART: Yes STATUS PREG STATUS ASSESSED: Yes MEDS/ALLERGIES REVIEWED Meds/Allergies Reviewed Medications and Allergies including time and route of recently administered narcotics and sedatives. MEDS/ALLERGIES REVIEWED: Yes ASA RATING ASA RATING: II AIRWAY ASSESSMENT Airway Assessment Airway patency, oral function limitations, presence of caps, crowns, dentures, partials, and ability to extend neck assessed. AIRWAY ASSESSMENT: Yes MALLAMPATI SCORE MALLAMPATI SCORE: II PRE-SEDATION ASSESSMENT PRE-SEDATION ASSESSMENT: Yes ALFREDO GUTIÉRREZ MD Jun 18, 2018 09:09
[2018-06-18] MEDS ORDERED: MIDAZOLAM HCL/PF 2 MG/2 ML VIAL. IV ONE (09:15)
[2018-06-18] MEDS ORDERED: LIDOCAINE WITH 8.4% SOD BICARB 3 ML DISP.SYRIN. IJ ONE (09:15)
[2018-06-18] MEDS ORDERED: fentaNYL PF VIAL 100 MCG/2 ML VIAL IV ONE (09:15)
--- NOTE | 2018-06-18 09:29 | PDOC ---
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 OBJECTIVE Vital Signs Vital Signs Date Time Temp Pulse Resp B/P (MAP) Pulse Ox O2 Delivery O2 Flow Rate FiO2 06/18/18 09:20 100 23 97 Nasal Cannula 2.0 06/18/18 09:15 95 19 97 Nasal Cannula 2.0 06/18/18 09:10 91 20 97 Nasal Cannula 2.0 06/18/18 08:30 Room Air 06/18/18 07:00 100.2 100 20 117/74 (88) 95 Room Air 100.2 06/18/18 02:53 100.4 106 18 128/82 (97) 96 Room Air 100.4 06/17/18 23:00 99.7 102 18 122/81 (95) 95 Room Air 99.7 06/17/18 19:55 Room Air 06/17/18 19:00 99.2 99 18 124/77 (93) 97 Room Air 99.2 06/17/18 18:14 99.2 98 20 133/81 (98) 99 Room Air 99.2 06/17/18 17:12 99.9 93 20 129/75 99.9 06/17/18 16:20 98.6 92 20 123/76 98.6 06/17/18 15:20 98.7 94 20 130/75 98.7 06/17/18 14:35 98.7 91 20 110/66 (81) 96 Room Air 98.7 06/17/18 14:34 98.7 91 20 110/66 98.7 06/17/18 14:18 98.4 93 20 131/74 98.4 06/17/18 12:35 98.3 88 20 121/79 (93) 99 Room Air 98.3 06/17/18 11:34 98.0 85 20 115/72 98.0 06/17/18 11:26 98.2 87 20 114/71 98.2 06/17/18 10:26 98.0 88 16 111/68 (82) 98 Room Air 98.0 06/17/18 10:25 98.0 88 16 111/68 98.0 06/17/18 09:32 98.4 88 20 112/66 98.4 I & O Intake and Output 06/18/18 07:00 Intake Total 2901 ml Output Total 475 ml Balance 2426 ml Intake Oral 1380 ml Blood Product IV Normal Saline Flush 1521 ml Output Urine Total 475 ml # Voids 1 COMMENT Lab Laboratory Tests Test 06/18/18 04:48 White Blood Count 6.4 x10^3/uL (4.0-11.0) Red Blood Count 2.40 x10^6/uL (4.30-5.70) Hemoglobin 7.2 g/dL (13.0-17.5) Hematocrit 20.5 % (39.0-53.0) Mean Corpuscular Volume 86 fL (79-100) Mean Corpuscular Hemoglobin 30 pg (25-35) Mean Corpuscular Hemoglobin Concent 35 g/dL (31-37) Red Cell Distribution Width 15.7 % (11.5-14.5) Platelet Count 221 x10^3/uL (140-400) MARV WILKES MD Jun 18, 2018 09:29
--- NOTE | 2018-06-18 12:38 | PDOC3 ---
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 SUCH APLASIA admitted. transfuse consult Hematology/Oncology. ok with d/c today home meds, PT, OT. RETIC COUNT BM BX TODAY Vitals Vitals Vital Signs Date Time Temp Pulse Resp B/P (MAP) Pulse Ox O2 Delivery O2 Flow Rate FiO2 06/18/18 02:53 100.4 106 18 128/82 (97) 96 Room Air 100.4 Physical Exam General: Oriented X3, Cooperative, No acute distress Heart: Regular rate, Normal S1 Lungs: Clear Abdomen: Normal bowel sounds, Soft, No hepatosplenomegaly Extremities: No clubbing, No cyanosis Brief Hospital Course Mr. Newsome is a 62 old [sex] who presented with [anemia ] CONDITION AT DISCHARGE: Improved Discharge Medications Current Medications Acetaminophen (Tylenol) 650 mg PRN Q6HRS PRN PO MILD PAIN / TEMP Last administered on 06/18/18at 08:33; Start 06/18/18 at 08:15 Midazolam HCl (Versed) 2 mg STK-MED ONCE .ROUTE ; Start 06/18/18 at 09:01; Stop 06/18/18 at 09:02; Status DC Fentanyl Citrate (Fentanyl 2ml Vial) 100 mcg STK-MED ONCE .ROUTE ; Start at 09:01; Stop 06/18/18 at 09:02; Status DC Lidocaine/Sodium Bicarbonate (Buffered Lidocaine 1%) 3 ml 1X ONCE IJ Last administered on 06/18/18at 09:24; Start 06/18/18 at 09:15; Stop 06/18/18 at 09 :24; Status DC Midazolam HCl (Versed) 2 mg 1X ONCE IV Last administered on 06/18/18at 09:25; Start 06/18/18 at 09:15; Stop 06/18/18 at 09:24; Status DC Fentanyl Citrate (Fentanyl 2ml Vial) 100 mcg 1X ONCE IV Last administered on 06/18/18at 09:15; Start 06/18/18 at 09:15; Stop 06/18/18 at 09:24; Status DC Active Scripts Active Reported No Known Medications Prior To Admisstion (Info) Each 1 Each Vital Signs Vital Signs Date Time Temp Pulse Resp B/P (MAP) Pulse Ox O2 Delivery O2 Flow Rate FiO2 06/18/18 11:45 97.9 88 14 107/65 97.9 06/18/18 09:25 97 Nasal Cannula 2.0 Labs Laboratory Tests Test 06/16/18 12:37 06/17/18 03:40 06/17/18 03:45 06/18/18 04:48 White Blood Count 6.3 x10^3/uL (4.0-11.0) 9.4 x10^3/uL (4.0-11.0) 6.4 x10^3/uL (4.0-11.0) Red Blood Count 1.43 x10^6/uL (4.30-5.70) 1.69 x10^6/uL (4.30-5.70) 2.40 x10^6/uL (4.30-5.70) Hemoglobin 4.4 g/dL (13.0-17.5) 5.3 g/dL (13.0-17.5) 7.2 g/dL (13.0-17.5) Hematocrit 12.2 % (39.0-53.0) 14.5 % (39.0-53.0) 20.5 % (39.0-53.0) Mean Corpuscular Volume 86 fL (79-100) 86 fL (79-100) 86 fL (79-100) Mean Corpuscular Hemoglobin 31 pg (25-35) 31 pg (25-35) 30 pg (25-35) Mean Corpuscular Hemoglobin Concent 36 g/dL (31-37) 37 g/dL (31-37) 35 g/dL (31-37) Red Cell Distribution Width 15.5 % (11.5-14.5) 15.6 % (11.5-14.5) 15.7 % (11.5-14.5) Platelet Count 232 x10^3/uL (140-400) 206 x10^3/uL (140-400) 221 x10^3/uL (140-400) Neutrophils (%) (Auto) 78 % (31-73) 82 % (31-73) Lymphocytes (%) (Auto) 12 % (24-48) 11 % (24-48) Monocytes (%) (Auto) 9 % (0-9) 6 % (0-9) Eosinophils (%) (Auto) 0 % (0-3) 0 % (0-3) Basophils (%) (Auto) 1 % (0-3) 0 % (0-3) Neutrophils # (Auto) 4.9 x10^3uL (1.8-7.7) 7.7 x10^3uL (1.8-7.7) Lymphocytes # (Auto) 0.8 x10^3/uL (1.0-4.8) 1.0 x10^3/uL (1.0-4.8) Monocytes # (Auto) 0.6 x10^3/uL (0.0-1.1) 0.6 x10^3/uL (0.0-1.1) Eosinophils # (Auto) 0.0 x10^3/uL (0.0-0.7) 0.0 x10^3/uL (0.0-0.7) Basophils # (Auto) 0.0 x10^3/uL (0.0-0.2) 0.0 x10^3/uL (0.0-0.2) Prothrombin Time 15.3 SEC (11.7-14.0) Prothromb Time International Ratio 1.3 (0.8-1.1) Sodium Level 141 mmol/L (136-145) Potassium Level 3.9 mmol/L (3.5-5.1) Chloride Level 106 mmol/L (98-107) Carbon Dioxide Level 26 mmol/L (21-32) Anion Gap 9 (6-14) Blood Urea Nitrogen 18 mg/dL (8-26) Creatinine 1.0 mg/dL (0.7-1.3) Estimated GFR (Cockcroft-Gault) 91.6 BUN/Creatinine Ratio 18 (6-20) Glucose Level 112 mg/dL (70-99) Calcium Level 8.5 mg/dL (8.5-10.1) Total Bilirubin 1.0 mg/dL (0.2-1.0) Aspartate Amino Transf (AST/SGOT) 17 U/L (15-37) Alanine Aminotransferase (ALT/SGPT) 18 U/L (16-63) Alkaline Phosphatase 98 U/L (46-116) Troponin I Quantitative 0.051 ng/mL (0.000-0.055) Total Protein 6.3 g/dL (6.4-8.2) Albumin 2.9 g/dL (3.4-5.0) Albumin/Globulin Ratio 0.9 (1.0-1.7) Reticulocyte Count (auto) 1.0 % (0.5-2.5) Laboratory Tests Test 06/18/18 04:48 White Blood Count 6.4 x10^3/uL (4.0-11.0) Red Blood Count 2.40 x10^6/uL (4.30-5.70) Hemoglobin 7.2 g/dL (13.0-17.5) Hematocrit 20.5 % (39.0-53.0) Mean Corpuscular Volume 86 fL (79-100) Mean Corpuscular Hemoglobin 30 pg (25-35) Mean Corpuscular Hemoglobin Concent 35 g/dL (31-37) Red Cell Distribution Width 15.7 % (11.5-14.5) Platelet Count 221 x10^3/uL (140-400) Allergies Allergies Coded Allergies Type Severity Reaction Last Updated Verified No Known Drug Allergies 05/21/18 No Disposition/Orders: D/C to Home Patient Instructions d/c planning 33 min OLMAN CALDERON MD Jun 18, 2018 12:38
--- NOTE | 2018-06-18 12:39 | DISCH ---
DISCHARGE INSTRUCTIONS Condition on Discharge Condition on Discharge: Guarded Activity After Discharge Activity Instructions for Disc: Resume previous activity Bathing Instructions: Shower-keep dressing dry Lifting Instructions after Dis: No heavy lifting, No pulling or pushing Exercise Instruction after Dis: Walk 10 min, 3 x per day Driving Instructions after Dis: Do not drive Diet after Discharge Diet after Discharge: Regular Wound Incision Care Wound/Incision Care: Ice to area for comfort Checks after Discharge Checks after discharge: Check blood press - daily, Check your Temp as needed Contacting the DR. after DC Call your doctor for: If your condition worsens OLMAN CALDERON MD Jun 18, 2018 12:39
[2018-06-18] MEDS ORDERED: HYDR-2758 PO (12:42)
[2018-06-18 15:55] LABS: HEMATOCRIT 24.6 % (39.0-53.0); HEMOGLOBIN 8.7 g/dL (13.0-17.5)
[2018-06-20 16:16] LABS: PARVO IGG 6.1 index (0.0-0.8); PARVO IGM 0.2 index (0.0-0.8)
== END 2018-06-18 16:53 | disposition home or self-care (01) | DRG 812 ==
LOC: ER 11:25 → 5 NORTH 13:10
PROVIDERS: ADMIT Internal Medicine; ATTEND Internal Medicine
PROC: 30233N1 Transfusion of Nonautologous Red Blood Cells into Peripheral Vein, Percutaneous Approach (ICD-10-PCS; principal; 2018-06-16)
PROC: 07DR3ZX Extraction of Iliac Bone Marrow, Percutaneous Approach, Diagnostic (ICD-10-PCS; 2018-06-18)
DX: D64.9 Anemia, unspecified (principal); I10 Essential (primary) hypertension; Z96.642 Presence of left artificial hip joint; M19.90 Unspecified osteoarthritis, unspecified site; M54.9 Dorsalgia, unspecified; Z82.49 Family history of ischemic heart disease and other diseases of the circulatory system; Z87.891 Personal history of nicotine dependence
CPT/HCPCS: 36415; 38222; 71046; 77012; 80053; 84484; 85014; 85018; 85025; 85027; 85045; 85610; 86747; 86850; 86900; 86901; 86920; 88184; 88185; 88237; 93005; 99152; J2250; J3010; P9016; 99285-25

== ENCOUNTER → 2018-07-29 | Outpatient (CLI) | payer BC ==
[2018-07-29] VITALS (7 sets, daily range): BP systolic 112–130; BP diastolic 59–77
[~2018-07-29] MED LIST changes: +ACETAMINOPHEN 325 MG TABLET. PO PRN; +FUROSEMIDE 20 MG/2 ML VIAL. IVP ONE; +HYDR-2758 PO; +diphenhydrAMINE HCL 25 MG CAPSULE PO PRN
[2018-07-29 12:45] LABS: HEMATOCRIT 17.8 % (39.0-53.0)
== END | disposition home or self-care (01) ==
LOC: OPS 10:54
PROVIDERS: ATTEND Internal Medicine Hematology & Oncology
DX: D46.9 Myelodysplastic syndrome, unspecified (principal); I10 Essential (primary) hypertension; K21.9 Gastro-esophageal reflux disease without esophagitis; M19.90 Unspecified osteoarthritis, unspecified site; Z96.642 Presence of left artificial hip joint; Z87.891 Personal history of nicotine dependence; Z79.899 Other long term (current) drug therapy; Z79.01 Long term (current) use of anticoagulants
CPT/HCPCS: 36415; 36430; 85014; 85018; 86850; 86900; 86901; 86920; 96374; J1940; P9016; Q0163